=== PATIENT | female | born 1990 | race Caucasian/White ===

== ENCOUNTER 2017-12-08 06:00 | Inpatient (IN) | payer OTHER ==
[2017-12-08 18:09] VITALS: BMI 26.8
[2017-12-08] MEDS ORDERED: TERBUTALINE 1 MG/ML VIAL SQ PRN (18:12)
[2017-12-08] MEDS ORDERED: OXYTOCIN 10 UNIT/ML 1 ML VIAL IM PRN (18:12)
[2017-12-08] MEDS ORDERED: CARBOPROST TROMETHAMINE 250 MCG/ML 1 ML AMP IM PRN (18:12)
[2017-12-08] MEDS ORDERED: LIDOCAINE 1% (PF) 10 MG/ML (30 ML SDV) SQ PRN (18:12)
[2017-12-08] MEDS ORDERED: METHYLERGONOVINE 0.2 MG/ML 1 ML AMP IM PRN (18:12)
[2017-12-08] MEDS ORDERED: DINOPROSTONE 10 MG INSERT.ER VAGINAL ONE (18:14)
[2017-12-08] MEDS ORDERED: BUTORPHANOL 1 MG/ML 1 ML VIAL IV PRN (18:14)
[2017-12-08 18:36] LABS: Basophils % (A) 0 %; Eosinophils # (A) 0.1 k/uL (0-0.7); Eosinophils % (A) 1 %; HCT 39.6 % (34.0-46.0); HGB 13.3 gm/dL (11.4-16.0); Lymphocytes # (A) 1.7 k/uL (1.0-4.8); Lymphocytes % (A) 14 %; MCH 32.4 pg (25.0-35.0); MCHC 33.6 g/dL (31.0-37.0); MCV 96.2 fL (80.0-100.0); Monocytes # (A) 0.4 k/uL (0-1.0); Monocytes % (A) 3 %; Neutrophils # (A) 9.8 k/uL (1.3-7.7); Neutrophils % (A) 80 %; Platelet Count 163 k/uL (150-450); RBC 4.11 m/uL (3.80-5.40); RDW 13.3 % (11.5-15.5); WBC 12.2 k/uL (3.8-10.6)
--- NOTE | 2017-12-08 18:44 | P.HPOB ---
History of Present Illness H&P Date: 12/08/17 Chief Complaint: IUP @ 40 0/7 weeks, pain This is a 27 yo that presents for induction of labor. she states she has been very uncomfortable for the last 2 days. she notes occasional ctx, no LOF, VB. On bloodwork, blood type O pos, rubella immune, HBSaG neg, HIV neg, GBS neg. has been uncomplicated until this time. 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 Past Anesthesia/Blood Transfusion Reactions: No Reported Reaction Past Psychological History: No Psychological Hx Reported Smoking Status: Never smoker Past Drug Use History: None Reported - Past Family History Mother Family Medical History: Hypertension Medications and Allergies Allergies Allergy/AdvReac Type Severity Reaction Status Date / Time amoxicillin Allergy Rash/Hives Verified 12/08/17 18:01 clavulanic acid Allergy Rash/Hives Verified 12/08/17 18:01 [From Augmentin] Penicillins Allergy Rash/Hives Verified 12/08/17 18:01 Exam Osteopathic Statement: *. No significant issues noted on an osteopathic structural exam other than those noted in the History and Physical/Consult. - Vital Signs Vital signs: Vital Signs Temp Pulse Resp BP Pulse Ox 12/08/17 18:02 97.0 F L 88 18 150/90 99 Intake and Output 12/08/17 12/08/17 12/08/17 06:59 14:59 22:59 Other: Weight 75.296 kg - OBG Physical Exam Abdomen: gravid Cervix: ft/60/-3, soft posterior, small outlet noted Uterus: enlarged Assessment and Plan (1) Term Current Visit: Yes Status: Acute Code(s): Z34.80 - ENCOUNTER FOR SUPRVSN OF NORMAL , UNSP TRIMESTER SNOMED Code(s): 48656694 (2) Pain Current Visit: Yes Status: Acute Code(s): R52 - PAIN, UNSPECIFIED SNOMED Code(s): 78382797 Plan: plan admission tonight to labor and delivery for cervidil induction. stadol as requested, and epidural is order if needed. Time with Patient: Less than 30
[2017-12-09] MEDS: LACTATED RINGERS 1,000 ML IV SCH ×2 (06:05→08:56)
[2017-12-09] MEDS: OXYTOCIN 20 UNITS/1000 ML NS 1,000 ML IV SCH ×2 (06:13→20:09)
[2017-12-09] MEDS ORDERED: SODIUM CHLORIDE 0.9% 100 ML BAG ONE (08:30)
[2017-12-09] MEDS ORDERED: fentaNYL (PF) 50 MCG/ML 5 ML AMP ONE (08:30)
[2017-12-09] MEDS ORDERED: BUPIVACAINE (PF) 0.25% 30 ML VIAL ONE (08:30)
[2017-12-09] MEDS ORDERED: BUPIVACAINE (PF) 0.25% 25 ML, fentaNYL (PF) 200 MCG in SODIUM CHLORIDE 0.9% 71 ML EPIDURAL ONE (08:46)
[2017-12-09] MEDS ORDERED: LANOLIN CREAM 5 GM TUBE TOPICAL PRN (20:02)
[2017-12-09] MEDS ORDERED: SIMETHICONE 80 MG CHEWABLE PO PRN (20:02)
[2017-12-09] MEDS ORDERED: diphenhydrAMINE 25 MG CAP PO PRN (20:02)
[2017-12-09] MEDS ORDERED: BENZOCAINE/MENTHOL SPRAY 1 GM/SPRAY AEROSOL TOPICAL PRN (20:02)
[2017-12-09] MEDS ORDERED: HYDROCORTISONE 2.5% RECTAL CREAM 30 GM TUBE RECTAL PRN (20:02)
[2017-12-09] MEDS ORDERED: diphenhydrAMINE 50 MG/ML 1 ML VIAL IVP PRN ×2 (20:02)
[2017-12-09] MEDS ORDERED: ZOLPIDEM 5 MG TAB PO PRN (20:02)
[2017-12-09] MEDS ORDERED: diphenhydrAMINE 50 MG CAP PO PRN (20:02)
[2017-12-09] MEDS ORDERED: WITCH HAZEL 1 EACH MED..PAD TOPICAL PRN (20:02)
--- NOTE | 2017-12-09 20:11 | P.PROBDLV ---
Vaginal Delivery Note - . Vaginal Delivery Note: 27 yo at 40 0/7 weeks that presented for induction of labor last evening. she had a cervidil placed and progressed through the night and had SROM early in the am, clear in nature. pitocin augmentation was began and soon epidural placement was requested per pt. she progressed to complete and began pushing, she pushed to but was unable to push further secondary to maternal exhaustion. VAVD, one pull only with a contraction was completed with delviery of the Infant was noted to be maternal exhaustion was noted vacuum was placed in the usual fashion, palpation around the cup was then completed tissue was noted within the cup the suction was then activated to the green zone. Patient began pushing with push chance was noted was then delivered atraumatically suction was released downward traction delivered the anterior shoulder followed by gentle upward traction for the posterior shoulder the infant was then delivered in placed on the maternal abdomen. The cord was then doubly clamped and cut after he did blade cord clamp was completed. The placenta was then delivered spontaneously intact with a three-vessel cord. On inspection the patient's vaginal vault a midline second-degree laceration along with a left lateral sulcus laceration was noted these were repaired in the usual fashion with 3-0 Rapide. Afterwards these were inspected and hemostasis was appreciated. A rectal exam was completed and normal in nature. Estimated blood loss approximately 400 mL, mother and tolerated delivery well and are resting comfortably.
[2017-12-09] MEDS: IBUPROFEN 600 MG TAB PO PRN (21:37)
[2017-12-10] MEDS: ACETAMINOPHEN TAB 325 MG TAB PO PRN ×2 (00:48→12:03)
[2017-12-10] MEDS: LACTATED RINGERS 1,000 ML IV SCH (04:55)
[2017-12-10] MEDS: SENNOSIDES-DOCUSATE SODIUM 1 EACH TAB PO SCH (07:42)
[2017-12-10] MEDS: IBUPROFEN 600 MG TAB PO PRN ×2 (07:43→21:36)
[2017-12-10 08:17] LABS: Basophils % (A) 0 %; Eosinophils % (A) 0 %; HCT 31.3 % (34.0-46.0); HGB 10.7 gm/dL (11.4-16.0); Lymphocytes # (A) 1.4 k/uL (1.0-4.8); Lymphocytes % (A) 7 %; MCHC 34.3 g/dL (31.0-37.0); MCV 96.4 fL (80.0-100.0); Mean Platelet Volume 8.1; Monocytes # (A) 0.7 k/uL (0-1.0); Monocytes % (A) 3 %; Neutrophils # (A) 18.2 k/uL (1.3-7.7); Neutrophils % (A) 88 %; Platelet Count 131 k/uL (150-450); RBC 3.25 m/uL (3.80-5.40); RDW 13.3 % (11.5-15.5); WBC 20.5 k/uL (3.8-10.6)
--- NOTE | 2017-12-10 08:30 | P.PNOBGVD ---
Subjective - Subjective Principal diagnosis: day #1 status post vacuum-assisted vaginal delivery Interval history: Patient is doing well she is ambulating and voiding without difficulty. She is stating her pain is controlled with oral medication. She is breast-feeding without difficulty. She is denying nausea or vomiting and tolerating a regular diet Patient reports: Reports appetite normal, Reports voiding normally, Reports pain well controlled, Reports ambulating normally : doing well, nursing well Objective - Latest Vital Signs Latest vital signs: Vital Signs Temp Pulse Resp BP 12/10/17 08:00 98 F 82 18 148/68 12/10/17 04:00 98.2 F 93 14 132/78 12/10/17 00:00 97.9 F 102 H 16 136/83 12/09/17 21:56 122 H 16 145/63 12/09/17 21:26 115 H 16 142/78 12/09/17 20:51 122 H 18 144/80 12/09/17 20:36 98.2 F 136 H 18 148/65 12/09/17 20:11 160 H 18 136/81 12/09/17 19:56 98.5 F 155 H 20 158/74 12/09/17 19:49 150 H Intake and Output 12/09/17 12/10/17 12/10/17 22:59 06:59 14:59 Intake Total 41.8 Output Total 1200 3000 Balance -1158.2 -3000 Intake: Intake, IV Titration 41.8 Amount Oxytocin 20 Units/1000 ml 41.8 Ns 1,000 ml @ 1 MILLIUNIT/MIN 3 mls/hr IV .Q24H [facility] Rx#:[id number] Output: Urine 3000 Uretheral ([place]) 1500 Estimated Blood Loss 1200 Other: # Voids 1 - Exam Extremities: Present: normal Abdomen: Present: soft Uterus: Present: firm - Labs Labs: Abnormal Lab Results - Last 24 Hours (Table) 12/10/17 Range/Units 07:11 WBC 20.5 H (3.8-10.6) k/uL RBC 3.25 L (3.80-5.40) m/uL Hgb 10.7 L (11.4-16.0) gm/dL Hct 31.3 L (34.0-46.0) % Plt Count 131 L (150-450) k/uL Neutrophils # 18.2 H (1.3-7.7) k/uL Assessment and Plan (1) Term Current Visit: Yes Status: Acute Code(s): Z34.80 - ENCOUNTER FOR SUPRVSN OF NORMAL , UNSP TRIMESTER SNOMED Code(s): 39324522 (2) Pain Current Visit: Yes Status: Acute Code(s): R52 - PAIN, UNSPECIFIED SNOMED Code(s): 42329323 (3) Status post vacuum-assisted vaginal delivery Current Visit: Yes Status: Acute Code(s): Z87.42 - PERSONAL HISTORY OF OTH DISEASES OF THE FEMALE GENITAL TRACT SNOMED Code(s): 066976966 Plan: Doing well , we will increase ambulation and breast-feeding this morning. Patient does desire circumflex of her boy which will be done later this afternoon. She does wish to stay until the morning. And will most likely be discharged tomorrow
[2017-12-11] MEDS: SENNOSIDES-DOCUSATE SODIUM 1 EACH TAB PO SCH ×2 (00:51→07:35)
[2017-12-11] MEDS: IBUPROFEN 600 MG TAB PO PRN ×2 (07:35→14:02)
[2017-12-11 07:43] VITALS: TEMP 97.6
--- NOTE | 2017-12-11 08:19 | P.DS ---
Providers Date of admission: 12/08/17 17:44 Expected date of discharge: 12/11/17 Attending physician: Raissa Lopez Primary care physician: Stated None Hospital Course: This is a 27-year-old white female 1 para 0 EDC 12/08/2017 at 40 and one sevenths weeks' gestation. Patient was admitted for induction. She received Cervidil 1, and the next morning artificial amniorrhexis revealed clear fluid. is essentially unremarkable, blood type O+, rubella status immune, group B strep cultures negative. Please see dictated history and physical for details. Oxytocin was started and titrated per hospital protocol epidural was placed per her request. She went on to deliver a liveborn male infant, he weighed 3340 g or 7 lbs. 6 oz. There was a small second-degree perineal laceration easily repaired and an estimated blood loss recorded of 400 mL's. Please see dictated delivery note for details. Circumcision has been performed. This morning the patient is doing well. She is voiding, ambulating and passing flatus without difficulty. Vital signs are stable and she is afebrile. Fundus is firm and in the midline, symmetric and 18 week size. Extremities are negative for edema. She has a mild amount of. Orbital swelling from the second stage of labor, vision is good, no obvious ecchymoses. Breasts are not engorged. Breast-feeding is going well. Patient is being discharged home in good condition today. She will follow-up in the office with her attending physician in 6 weeks. I have reminded her no intercourse, tampons or douching. She will use [id number] ibuprofen products as needed for pain, 200 mg pills, 3 every 6 hours as needed. I reminded her to call with any fevers shakes or chills, foul smelling or copious lochia, with the passage of large blood clots, with any pain not alleviated by ibuprofen products, or indeed with any concerns. She will continue taking her vitamin daily. Baby will follow up with automotive exhaust emissions technician as per recommendations. Patient Condition at Discharge: Good Plan - Discharge Summary Follow up Appointment(s)/Referral(s): Raissa Lopez DO [Doctor of Osteopathic Medicine] - 6 Weeks Discharge Disposition: HOME SELF-CARE
[2017-12-11 15:09] VITALS: BP 135/79; PULSE 100; RESP 16
== END 2017-12-11 19:00 | disposition home or self-care (01) | DRG 775 ==
LOC: 4FBP 17:44
PROVIDERS: ADMIT Obstetrics & Gynecology Obstetrics; ATTEND Obstetrics & Gynecology Obstetrics
PROC: 0KQM0ZZ Repair Perineum Muscle, Open Approach (ICD-10-PCS; principal; 2017-12-09)
PROC: 00HU33Z Insertion of Infusion Device into Spinal Canal, Percutaneous Approach (ICD-10-PCS; principal; 2017-12-09)
PROC: 10D07Z6 Extraction of Products of Conception, Vacuum, Via Natural or Artificial Opening (ICD-10-PCS; principal; 2017-12-09)
PROC: 3E0R3NZ Introduction of Analgesics, Hypnotics, Sedatives into Spinal Canal, Percutaneous Approach (ICD-10-PCS; principal; 2017-12-09)
DX: O75.81 Maternal exhaustion complicating labor and delivery (principal); K21.9 Gastro-esophageal reflux disease without esophagitis; O99.62 Diseases of the digestive system complicating childbirth; Z37.0 Single live birth; O70.1 Second degree perineal laceration during delivery; Z3A.40 40 weeks gestation of pregnancy; Z82.49 Family history of ischemic heart disease and other diseases of the circulatory system; Z98.890 Other specified postprocedural states; Z88.0 Allergy status to penicillin
CPT/HCPCS: 85025; 88307

== ENCOUNTER 2020-11-24 15:10 | Inpatient (IN) | payer OTHER ==
[2020-11-24] MEDS ORDERED: SODIUM CHLORIDE 0.9% 500 ML 500 ML IV ONE (16:07)
[2020-11-24] MEDS ORDERED: ALBUTEROL HFA INHALER INHALATION STA (16:07)
[2020-11-24] MEDS ORDERED: ACETAMINOPHEN TAB 500 MG TAB PO STA (16:11)
--- NOTE | 2020-11-24 16:15 | ED ---
General Adult HPI - General Chief complaint: Upper Respiratory Infection Stated complaint: +COVID,SOB 28 wks preg Time Seen by Provider: 11/24/20 16:01 Source: patient, RN notes reviewed, old records reviewed Mode of arrival: ambulatory Limitations: no limitations - History of Present Illness Initial comments: 30-year-old female presents for evaluation of cough, fever. Patient was diagnosed with coronavirus on November 21. She is currently 28 weeks . She's had some nausea and dry heaving. She states she has not felt well for the past 3 days. She does have some shortness of breath. No lower extremity pain or swelling. No complications with this . Patient is otherwise healthy. - Related Data Allergies Allergy/AdvReac Type Severity Reaction Status Date / Time amoxicillin Allergy Rash/Hives Verified 11/24/20 15:28 clavulanic acid Allergy Rash/Hives Verified 11/24/20 15:28 [From Augmentin] Penicillins Allergy Rash/Hives Verified 11/24/20 15:28 Review of Systems ROS Statement: Those systems with pertinent positive or pertinent negative responses have been documented in the HPI. ROS Other: All systems not noted in ROS Statement are negative. 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 Past Anesthesia/Blood Transfusion Reactions: No Reported Reaction Past Psychological History: No Psychological Hx Reported Smoking Status: Never smoker Past Alcohol Use History: None Reported Past Drug Use History: None Reported - Past Family History Mother Family Medical History: Hypertension General Exam Limitations: no limitations General appearance: alert, in no apparent distress Head exam: Present: atraumatic, normocephalic Eye exam: Present: normal appearance, PERRL ENT exam: Present: mucous membranes dry Neck exam: Present: normal inspection. Absent: tenderness, meningismus Respiratory exam: Present: rales, rhonchi. Absent: respiratory distress Cardiovascular Exam: Present: regular rate, normal rhythm GI/Abdominal exam: Present: soft, other (Gravid). Absent: distended, tenderness, guarding Extremities exam: Present: normal inspection, normal capillary refill. Absent: pedal edema, calf tenderness Neurological exam: Present: alert, oriented X3, CN II-XII intact. Absent: motor sensory deficit Psychiatric exam: Present: normal affect, normal mood Skin exam: Present: warm, dry, intact. Absent: cyanosis, diaphoretic Course Vital Signs 11/24/20 11/24/20 11/24/20 15:24 16:53 17:32 Temperature 100.9 F H Pulse Rate 92 142 H 126 H Respiratory 18 20 16 Rate Blood Pressure 121/68 121/58 O2 Sat by Pulse 93 L 94 L 97 Oximetry EKG Findings - EKG Comments: EKG Findings:: EKG: Sinus tachycardia, rate of 122, no ST segment elevation, FL intervals 1:30, QRS duration 80, QTC 436 Medical Decision Making - Medical Decision Making 30-year-old female with cough, outpatient positive for coronavirus. X-rays performed showing a bilateral pneumonia consistent withCOVID PNA. Patient is tachycardic, with oxygenation in the low 90s. She has a normal CBC, CMP showing normal electrolytes, she has a elevated LDH and elevated CRP. She is given Decadron, albuterol, IV hydration in the emergency department. She will be admitted for close monitoring, both obstetrics and pulmonology is placed on consult. Case discussed with Violet rao for [facility]. - Lab Data Result diagrams: 11/24/20 16:05 11/24/20 16:05 Lab Results 11/24/20 11/24/20 11/24/20 Range/Units 16:05 16:05 16:05 WBC 7.2 (3.8-10.6) k/uL RBC 4.33 (3.80-5.40) m/uL Hgb 14.1 (11.4-16.0) gm/dL Hct 40.9 (34.0-46.0) % MCV 94.5 (80.0-100.0) fL MCH 32.5 (25.0-35.0) pg MCHC 34.4 (31.0-37.0) g/dL RDW 13.5 (11.5-15.5) % Plt Count 154 (150-450) k/uL MPV 7.9 Neutrophils % 85 % Lymphocytes % 9 % Monocytes % 4 % Eosinophils % 0 % Basophils % 0 % Neutrophils # 6.2 (1.3-7.7) k/uL Lymphocytes # 0.7 L (1.0-4.8) k/uL Monocytes # 0.3 (0-1.0) k/uL Eosinophils # 0.0 (0-0.7) k/uL Basophils # 0.0 (0-0.2) k/uL PT 9.6 (9.0-12.0) sec INR 0.9 (<1.2) APTT 27.1 (22.0-30.0) sec Sodium 133 L (137-145) mmol/L Potassium 3.6 (3.5-5.1) mmol/L Chloride 103 (98-107) mmol/L Carbon Dioxide 21 L (22-30) mmol/L Anion Gap 9 mmol/L BUN 6 L (7-17) mg/dL Creatinine 0.67 (0.52-1.04) mg/dL Est GFR (CKD-EPI)AfAm >90 (>60 ml/min/1.73 sqM) Est GFR (CKD-EPI)NonAf >90 (>60 ml/min/1.73 sqM) Glucose 88 (74-99) mg/dL Plasma Lactic Acid Cesario (0.7-2.0) mmol/L Calcium 8.4 (8.4-10.2) mg/dL Magnesium 1.6 (1.6-2.3) mg/dL Total Bilirubin 0.7 (0.2-1.3) mg/dL AST 47 H (14-36) U/L ALT 22 (4-34) U/L Alkaline Phosphatase 85 (38-126) U/L Lactate Dehydrogenase 742 H (313-618) U/L C-Reactive Protein 65.0 H (<10.0) mg/L Total Protein 6.3 (6.3-8.2) g/dL Albumin 3.3 L (3.5-5.0) g/dL 11/24/20 Range/Units 16:50 WBC (3.8-10.6) k/uL RBC (3.80-5.40) m/uL Hgb (11.4-16.0) gm/dL Hct (34.0-46.0) % MCV (80.0-100.0) fL MCH (25.0-35.0) pg MCHC (31.0-37.0) g/dL RDW (11.5-15.5) % Plt Count (150-450) k/uL MPV Neutrophils % % Lymphocytes % % Monocytes % % Eosinophils % % Basophils % % Neutrophils # (1.3-7.7) k/uL Lymphocytes # (1.0-4.8) k/uL Monocytes # (0-1.0) k/uL Eosinophils # (0-0.7) k/uL Basophils # (0-0.2) k/uL PT (9.0-12.0) sec INR (<1.2) APTT (22.0-30.0) sec Sodium (137-145) mmol/L Potassium (3.5-5.1) mmol/L Chloride (98-107) mmol/L Carbon Dioxide (22-30) mmol/L Anion Gap mmol/L BUN (7-17) mg/dL Creatinine (0.52-1.04) mg/dL Est GFR (CKD-EPI)AfAm (>60 ml/min/1.73 sqM) Est GFR (CKD-EPI)NonAf (>60 ml/min/1.73 sqM) Glucose (74-99) mg/dL Plasma Lactic Acid Cesario 1.2 (0.7-2.0) mmol/L Calcium (8.4-10.2) mg/dL Magnesium (1.6-2.3) mg/dL Total Bilirubin (0.2-1.3) mg/dL AST (14-36) U/L ALT (4-34) U/L Alkaline Phosphatase (38-126) U/L Lactate Dehydrogenase (313-618) U/L C-Reactive Protein (<10.0) mg/L Total Protein (6.3-8.2) g/dL Albumin (3.5-5.0) g/dL Disposition Clinical Impression: Pneumonia due to COVID-19 virus, Disposition: ADMITTED IP TO THIS [facility] Condition: Stable Is patient prescribed a controlled substance at d/c from ED?: No Referrals: Nonstaff,Physician [Primary Care Provider] - 1-2 days Decision to Admit Reason: Admit from EC Decision Date: 11/24/20 Decision Time: 17:55
--- NOTE | 2020-11-24 16:18 | XR ---
EXAMINATION TYPE: XR chest 1V portable DATE OF EXAM: 11/24/2020 COMPARISON: NONE HISTORY: Cough. Short of breath. TECHNIQUE: Single view FINDINGS: Heart and mediastinum are normal. There are no hilar masses. There is patchy airspace infil trates in both lower lobes. Bony vascularity is normal. Bony thorax is intact. IMPRESSION: Bilateral lower lobe pneumonia. Normal heart.
[2020-11-24] MEDS ORDERED: DEXAMETHASONE SOD PHOSPHATE 10 MG/ML 1 ML VIAL IV STA (17:09)
[2020-11-24 17:10] LABS: Basophils % (A) 0 %; Eosinophils % (A) 0 %; HCT 40.9 % (34.0-46.0); HGB 14.1 gm/dL (11.4-16.0); Lymphocytes # (A) 0.7 k/uL (1.0-4.8); Lymphocytes % (A) 9 %; MCH 32.5 pg (25.0-35.0); MCHC 34.4 g/dL (31.0-37.0); MCV 94.5 fL (80.0-100.0); Mean Platelet Volume 7.9; Monocytes # (A) 0.3 k/uL (0-1.0); Monocytes % (A) 4 %; Neutrophils # (A) 6.2 k/uL (1.3-7.7); Neutrophils % (A) 85 %; Platelet Count 154 k/uL (150-450); RBC 4.33 m/uL (3.80-5.40); RDW 13.5 % (11.5-15.5); WBC 7.2 k/uL (3.8-10.6)
[2020-11-24 17:19] LABS: INR 0.9 (<1.2); Partial Thromboplastin Time 27.1 sec (22.0-30.0); Prothrombin Time 9.6 sec (9.0-12.0)
[2020-11-24 17:24] LABS: ALT 22 U/L (4-34); AST 47 U/L (14-36); African American GFR (CKD) >90 (>60 ml/min/1.73 sqM); Albumin 3.3 g/dL (3.5-5.0); Alkaline Phosphatase 85 U/L (38-126); Anion Gap 9 mmol/L; Blood Urea Nitrogen 6 mg/dL (7-17); Calcium 8.4 mg/dL (8.4-10.2); Carbon Dioxide 21 mmol/L (22-30); Chloride 103 mmol/L (98-107); Glucose 88 mg/dL (74-99); LDH 742 U/L (313-618); Magnesium 1.6 mg/dL (1.6-2.3); Non-African American GFR(CKD) >90 (>60 ml/min/1.73 sqM); Potassium 3.6 mmol/L (3.5-5.1); Sodium 133 mmol/L (137-145); Total Bilirubin 0.7 mg/dL (0.2-1.3); Total Protein 6.3 g/dL (6.3-8.2)
[2020-11-24] MEDS ORDERED: NALOXONE 0.4 MG/ML 1 ML VIAL IV PRN (17:50)
[2020-11-24] MEDS: SODIUM CHLORIDE 0.9% 1,000 ML IV SCH (21:28)
[2020-11-25 00:11] LABS: Ferritin 149.9 ng/mL (10.0-291.0)
[2020-11-25] MEDS: SODIUM CHLORIDE 0.9% 1,000 ML IV SCH ×2 (05:36→12:02)
[2020-11-25] MEDS: ACETAMINOPHEN TAB 325 MG TAB PO PRN (07:38)
[2020-11-25 07:56] LABS: Basophils % (A) 0 %; Eosinophils % (A) 0 %; HCT 35.2 % (34.0-46.0); HGB 11.9 gm/dL (11.4-16.0); Lymphocytes # (A) 0.6 k/uL (1.0-4.8); Lymphocytes % (A) 12 %; MCH 32.4 pg (25.0-35.0); MCHC 33.8 g/dL (31.0-37.0); MCV 95.9 fL (80.0-100.0); Mean Platelet Volume 7.6; Monocytes # (A) 0.2 k/uL (0-1.0); Monocytes % (A) 4 %; Neutrophils # (A) 4.5 k/uL (1.3-7.7); Neutrophils % (A) 83 %; Platelet Count 138 k/uL (150-450); RBC 3.67 m/uL (3.80-5.40); RDW 13.7 % (11.5-15.5); WBC 5.4 k/uL (3.8-10.6)
[2020-11-25 08:07] LABS: ALT 20 U/L (4-34); AST 39 U/L (14-36); African American GFR (CKD) >90 (>60 ml/min/1.73 sqM); Albumin 2.5 g/dL (3.5-5.0); Alkaline Phosphatase 65 U/L (38-126); Anion Gap 5 mmol/L; Blood Urea Nitrogen 5 mg/dL (7-17); Carbon Dioxide 19 mmol/L (22-30); Chloride 111 mmol/L (98-107); Glucose 101 mg/dL (74-99); Magnesium 1.7 mg/dL (1.6-2.3); Non-African American GFR(CKD) >90 (>60 ml/min/1.73 sqM); Potassium 3.8 mmol/L (3.5-5.1); Sodium 135 mmol/L (137-145); Total Bilirubin 0.6 mg/dL (0.2-1.3); Total Protein 5.2 g/dL (6.3-8.2)
[2020-11-25] MEDS ORDERED: MAGNESIUM SULFATE-D5W PMX 1 GM in DEXTROSE/WATER 1 100ML.BAG IVPB ONE (10:17)
--- NOTE | 2020-11-25 10:24 | P.HPIM ---
History of Present Illness 30-year-old female presents for evaluation of cough, fever. Patient was diagnosed with coronavirus on November 21. She is currently 28 weeks . She's had some nausea and dry heaving. She states she has not felt well for the past 3 days. She does have some shortness of breath. No lower extremity pain or swelling. No complications with this . Patient is otherwise healthy. Patient was given a dose of Decadron in ER. Patient is hyponatremic is receiving IV fluids. Magnesium is low which will be replaced. Patient has symptoms of congestion which started about 9 days ago but her actual symptoms of body aches fevers started 5 days ago. Patient's hyponatremia improved patient had a chest x-ray just showing extensive infiltrates in bilateral lower lobes. Patient is not requiring oxygen patient is bit tachycardic at tachycardia although improved with IV fluids. Patient was having fevers last night. Wilton georges is having dry cough Review of Systems REVIEW OF SYSTEMS: CONSTITUTIONAL: As mentioned in HPI HEENT: No recent visual problems or hearing problems. Denied any sore throat. CARDIOVASCULAR: No chest pain, orthopnea, PND, no palpitations, no syncope. PULMONARY: no hemoptysis. GASTROINTESTINAL: No diarrhea, no nausea, no vomiting, no abdominal pain. NEUROLOGICAL: No headaches, no weakness, no numbness. HEMATOLOGICAL: Denies any bleeding or petechiae. GENITOURINARY: Denies any burning micturition, frequency, or urgency. MUSCULOSKELETAL/RHEUMATOLOGICAL: Denies any joint pain, swelling, or any muscle pain. ENDOCRINE: Denies any polyuria or polydipsia. The rest of the 14-point review of systems is negative. 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 Past Anesthesia/Blood Transfusion Reactions: No Reported Reaction Past Psychological History: No Psychological Hx Reported Smoking Status: Never smoker Past Alcohol Use History: None Reported Past Drug Use History: None Reported - Past Family History Mother Family Medical History: Hypertension Medications and Allergies Home Medications Medication Instructions Recorded Confirmed Type Ascorbic Acid [Vitamin C] 500 mg PO DAILY 11/24/20 11/24/20 History Pnv No.95/Ferrous Fum/Folic AC 1 tab PO DAILY 11/24/20 11/24/20 History [ Multivitamin Tablet] Zinc 50 mg PO HS 11/24/20 11/24/20 History guaiFENesin-DM 100-10MG/5ML 10 ml PO Q4H PRN 11/24/20 11/24/20 History [Robitussin DM] Allergies Allergy/AdvReac Type Severity Reaction Status Date / Time amoxicillin Allergy Rash/Hives Verified 11/24/20 20:25 clavulanic acid Allergy Rash/Hives Verified 11/24/20 20:25 [From Augmentin] Penicillins Allergy Rash/Hives Verified 11/24/20 20:25 Physical Exam Vitals: Vital Signs Temp Pulse Pulse Resp BP BP Pulse Ox 11/25/20 07:43 98.1 F 95 18 120/65 95 11/25/20 04:00 97.9 F 88 20 124/68 95 11/25/20 01:48 90 20 11/25/20 00:00 98.0 F 90 20 102/66 97 11/24/20 20:00 96 20 11/24/20 18:37 98.3 F 96 20 105/70 96 11/24/20 18:18 100.2 F H 115 H 20 97 11/24/20 17:32 126 H 16 97 11/24/20 17:15 22 11/24/20 16:53 142 H 20 121/58 94 L 11/24/20 15:24 100.9 F H 92 18 121/68 93 L Intake and Output 11/24/20 11/25/20 11/25/20 22:59 06:59 14:59 Intake Total 240 640 Balance 240 640 Intake: Intake, IV Titration 400 Amount Sodium Chloride 0.9% 1, 400 000 ml @ 100 mls/hr IV . Q10H [facility] Rx#:[id number] Oral 240 240 Other: # Voids 1 2 Weight 64.41 kg 66.5 kg PHYSICAL EXAMINATION: GENERAL: The patient is alert and oriented x3, not in any acute distress. Well developed, well nourished. HEENT: Pupils are round and equally reacting to light. EOMI. No scleral icterus. No conjunctival pallor. Normocephalic, atraumatic. No pharyngeal erythema. No thyromegaly. CARDIOVASCULAR: S1 and S2 present. No murmurs, rubs, or gallops. PULMONARY: Chest is clear to auscultation, no wheezing or crackles. ABDOMEN: Soft, nontender, nondistended, normoactive bowel sounds. No palpable organomegaly. MUSCULOSKELETAL: No joint swelling or deformity. EXTREMITIES: No cyanosis, clubbing, or pedal edema. NEUROLOGICAL: Gross neurological examination did not reveal any focal deficits. SKIN: No rashes. Note: Because of COVID 19 isolation, some of the history and physical exam findings are indirect and obtained from nursing staff, and other physician examinations to avoid unnecessary contact with the patient. Results CBC & Chem 7: 11/25/20 07:03 11/25/20 07:03 Labs: Abnormal Lab Results - Last 24 Hours (Table) 11/24/20 11/24/20 11/24/20 Range/Units 16:05 16:05 16:05 RBC (3.80-5.40) m/uL Plt Count (150-450) k/uL Lymphocytes # 0.7 L (1.0-4.8) k/uL Sodium 133 L (137-145) mmol/L Chloride (98-107) mmol/L Carbon Dioxide 21 L (22-30) mmol/L BUN 6 L (7-17) mg/dL Glucose (74-99) mg/dL Calcium (8.4-10.2) mg/dL AST 47 H (14-36) U/L Lactate Dehydrogenase 742 H (313-618) U/L C-Reactive Protein 65.0 H (<10.0) mg/L Total Protein (6.3-8.2) g/dL Albumin 3.3 L (3.5-5.0) g/dL Procalcitonin 0.43 H (0.02-0.09) ng/mL 11/25/20 11/25/20 Range/Units 07:03 07:03 RBC 3.67 L (3.80-5.40) m/uL Plt Count 138 L (150-450) k/uL Lymphocytes # 0.6 L (1.0-4.8) k/uL Sodium 135 L (137-145) mmol/L Chloride 111 H (98-107) mmol/L Carbon Dioxide 19 L (22-30) mmol/L BUN 5 L (7-17) mg/dL Glucose 101 H (74-99) mg/dL Calcium 8.0 L (8.4-10.2) mg/dL AST 39 H (14-36) U/L Lactate Dehydrogenase (313-618) U/L C-Reactive Protein (<10.0) mg/L Total Protein 5.2 L (6.3-8.2) g/dL Albumin 2.5 L (3.5-5.0) g/dL Procalcitonin (0.02-0.09) ng/mL Thrombosis Risk Factor Assmnt - Choose All That Apply Any of the Below Risk Factors Present?: Yes Each Factor Represents 1 point: or Other Risk Factors: No Thrombosis Risk Factor Assessment Total Risk Factor Score: 1 Thrombosis Risk Factor Assessment Level: Low Risk Assessment and Plan Plan: -Bilateral pneumonia: Secondary to Covid 19. Patient is not requiring oxygen probably will not require any systemic strides continue with Covid vitamins. Pulmonology will evaluated the patient. Patient to is in distress because of significant cough patient will be started on cough syrup patient may be able to go either today or tomorrow depending on extruder operator multiple assessment. - status 28 weeks -Hypovolemic hyponatremia improved with IV fluids -Hypomagnesemia magnesium will be replaced -Sinus tachycardia secondary to fever and dehydration improved with IV fluids
[2020-11-25] MEDS: guaiFENesin-DM 100-10MG/5ML 10 ML CUP PO PRN (10:34)
[2020-11-25] MEDS: CHOLECALCIFEROL 25 MCG (1000 IU) TABLET PO SCH (12:04)
[2020-11-25] MEDS: dexAMETHasone 2 MG TAB PO SCH (12:04)
[2020-11-25] MEDS: BENZONATATE 100 MG CAP PO SCH ×3 (12:04→22:08)
--- NOTE | 2020-11-25 12:06 | P.OBCN ---
History of Present Illness Consult date: 11/25/20 Reason for consult: other () Chief complaint: 28 weeks IUP, COVID pneumonia History of present illness: The patient is a 30-year-old 2 para 1001 who initially began developing symptoms of cough and fever proximally 4 days ago around November 21. She went and had COVID testing performed which came up positive. Her symptoms began to increase leading her to present to the emergency room yesterday at which time she was deemed worthy of admission. Reportedly her O2 saturation was 93% on room air. It is approximately 97% on 2 L of nasal cannula oxygen. She continues to have a significant cough as her primary symptom and chest x-ray does show bilateral infiltrates consistent with pneumonia caused by coronavirus. She denies any concerns. The fetus remains active. She has undergone nonstress testing both yesterday at the time of admission and today, both of which were reassuring with category 1 heart rate tracings. Pulmonology has been consulted for management of her respiratory symptoms. Obstetrical history: 2 para 1001 with 1 term vaginal delivery without complications. Current statistics are listed in history present illness. The patient does have a personal history of ventricular septal defect causing recommendation for a echocardiogram following delivery. Laboratory workup demonstrates a blood type of O+ with a negative antibody screen. Rubella status is immune. The remainder of the laboratory workup was within normal limits. She has not yet undergone Glucola normal group B strep testing. Gynecologic history: Unremarkable with no history of any infections to include STDs. Review of Systems Review of systems is confined to history of present illness. 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 Past Anesthesia/Blood Transfusion Reactions: No Reported Reaction Past Psychological History: No Psychological Hx Reported Smoking Status: Never smoker Past Alcohol Use History: None Reported Past Drug Use History: None Reported - Past Family History Mother Family Medical History: Hypertension Medications and Allergies Home Medications Medication Instructions Recorded Confirmed Type Ascorbic Acid [Vitamin C] 500 mg PO DAILY 11/24/20 11/24/20 History Pnv No.95/Ferrous Fum/Folic AC 1 tab PO DAILY 11/24/20 11/24/20 History [ Multivitamin Tablet] Zinc 50 mg PO HS 11/24/20 11/24/20 History guaiFENesin-DM 100-10MG/5ML 10 ml PO Q4H PRN 11/24/20 11/24/20 History [Robitussin DM] Allergies Allergy/AdvReac Type Severity Reaction Status Date / Time amoxicillin Allergy Rash/Hives Verified 11/24/20 20:25 clavulanic acid Allergy Rash/Hives Verified 11/24/20 20:25 [From Augmentin] Penicillins Allergy Rash/Hives Verified 11/24/20 20:25 Exam Vital Signs Temp Pulse Pulse Resp BP BP Pulse Ox 11/25/20 10:42 97.8 F 91 20 117/60 95 11/25/20 07:43 98.1 F 95 18 120/65 95 11/25/20 04:00 97.9 F 88 20 124/68 95 11/25/20 01:48 90 20 11/25/20 00:00 98.0 F 90 20 102/66 97 11/24/20 20:00 96 20 11/24/20 18:37 98.3 F 96 20 105/70 96 11/24/20 18:18 100.2 F H 115 H 20 97 11/24/20 17:32 126 H 16 97 11/24/20 17:15 22 11/24/20 16:53 142 H 20 121/58 94 L 11/24/20 15:24 100.9 F H 92 18 121/68 93 L Intake and Output 11/24/20 11/25/20 11/25/20 22:59 06:59 14:59 Intake Total 240 640 600 Balance 240 640 600 Intake: Intake, IV Titration 400 400 Amount Magnesium Sulfate-D5w Pmx 100 1 gm In Dextrose/Water 1 100ml.bag @ 100 mls/hr IVPB ONCE ONE Rx#: [id number] Sodium Chloride 0.9% 1, 400 300 000 ml @ 100 mls/hr IV . Q10H [facility] Rx#:[id number] Oral 240 240 200 Other: # Voids 1 2 1 Weight 64.41 kg 66.5 kg Vital signs are stable and the patient is afebrile. Examination is limited to discussion though in general she is a well-developed well-nourished white female with a relatively chronic dry cough. Further examination is unwarranted as a medical team has managed that. Results Result Diagrams: 11/25/20 07:03 11/25/20 07:03 Abnormal Lab Results - Last 24 Hours (Table) 11/24/20 11/24/20 11/24/20 Range/Units 16:05 16:05 16:05 RBC (3.80-5.40) m/uL Plt Count (150-450) k/uL Lymphocytes # 0.7 L (1.0-4.8) k/uL Sodium 133 L (137-145) mmol/L Chloride (98-107) mmol/L Carbon Dioxide 21 L (22-30) mmol/L BUN 6 L (7-17) mg/dL Glucose (74-99) mg/dL Calcium (8.4-10.2) mg/dL AST 47 H (14-36) U/L Lactate Dehydrogenase 742 H (313-618) U/L C-Reactive Protein 65.0 H (<10.0) mg/L Total Protein (6.3-8.2) g/dL Albumin 3.3 L (3.5-5.0) g/dL Procalcitonin 0.43 H (0.02-0.09) ng/mL 11/25/20 11/25/20 Range/Units 07:03 07:03 RBC 3.67 L (3.80-5.40) m/uL Plt Count 138 L (150-450) k/uL Lymphocytes # 0.6 L (1.0-4.8) k/uL Sodium 135 L (137-145) mmol/L Chloride 111 H (98-107) mmol/L Carbon Dioxide 19 L (22-30) mmol/L BUN 5 L (7-17) mg/dL Glucose 101 H (74-99) mg/dL Calcium 8.0 L (8.4-10.2) mg/dL AST 39 H (14-36) U/L Lactate Dehydrogenase (313-618) U/L C-Reactive Protein (<10.0) mg/L Total Protein 5.2 L (6.3-8.2) g/dL Albumin 2.5 L (3.5-5.0) g/dL Procalcitonin (0.02-0.09) ng/mL Assessment and Plan (1) Pneumonia due to COVID-19 virus Current Visit: Yes Status: Acute Code(s): U07.1 - COVID-19; J12.82 - Pneumonia due to coronavirus disease 2019 SNOMED Code(s): 471138076870523025 (2) Current Visit: Yes Status: Acute Code(s): Z34.90 - ENCNTR FOR SUPRVSN OF NORMAL , UNSP, UNSP TRIMESTER SNOMED Code(s): 27785327 Plan: The primary issue at this time is her pulmonary status which is being well managed by medicine and pulmonology. From an obstetrical perspective, she only requires assessment of well-being on a daily basis with a nonstress test which has been performed both yesterday and today. I would agree with the idea of management patient as an outpatient if at all possible. We will leave that in the hands of pulmonology. We will continue to follow nonstress test but otherwise follow at a distance as there is no indication for obstetrical intervention at this time.
--- NOTE | 2020-11-25 15:02 | P.CNPUL ---
History of Present Illness Consult date: 11/25/20 Requesting physician: Eunice Martinez Reason for consult: dyspnea, abnormal CXR/CT Chief complaint: Shortness of breath, cough, congestion History of present illness: This is a very pleasant 30-year-old female patient who has a history of a VSD heart murmur and is currently 28 weeks . Oxygen 4-5 days ago she developed increasing shortness of breath cough congestion and fever. She was te sted positive for chronic virus on 11/21/2020. Her symptoms progressed and she presented to the emergency room yesterday with ongoing shortness of breath, cough and congestion. No nausea vomiting or diarrhea. Non-stress testing of the fetus has revealed good results. Chest x-ray does reveal bilateral patchy infiltrates consistent with CoVID 19 pneumonia. White count 5.4. Hemoglobin 11.9. Lymphocytes 0.6. Sodium 135. Potassium 3.8. Creatinine 0.58. LDH 742. C-reactive protein 65. Pro-calcitonin 0.43. She is seen today in consultation on the selective care unit. She is currently sitting up in bed. Awake and alert in no acute distress. He does have the continued dry nonproductive cough. T-max of 100.9. Currently afebrile. She is receiving 0.9 normal saline at 100 ML's per hour. vitamins. Review of Systems REVIEW OF SYSTEMS: CONSTITUTIONAL: Positive for expected weight gain. EYES: Denies change in vision. EARS, NOSE, MOUTH, THROAT: Denies headaches, denies sore throat. CARDIOVASCULAR: Denies chest pain, palpitations or syncopal episodes. RESPIRATORY: Positive for shortness of breath, cough, congestion no hemoptysis. GASTROINTESTINAL: Denies change in appetite, denies abdominal pain GENITOURINARY: Denies hematuria, denies infections. MUSKULOSKELETAL: Denies pain, denies swelling. INTEGUMENTARY: Denies rash, denies eczema. NEUROLOGICAL: Denies recent memory loss, no recent seizure activity. PSYCHIATRIC: Denies anxiety, denies depression. HEMATOLOGIC/LYMPHATIC: Denies anemia, denies enlarged lymph nodes. 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 Past Anesthesia/Blood Transfusion Reactions: No Reported Reaction Past Psychological History: No Psychological Hx Reported Smoking Status: Never smoker Past Alcohol Use History: None Reported Past Drug Use History: None Reported - Past Family History Mother Family Medical History: Hypertension Medications and Allergies Home Medications Medication Instructions Recorded Confirmed Type Ascorbic Acid [Vitamin C] 500 mg PO DAILY 11/24/20 11/24/20 History Pnv No.95/Ferrous Fum/Folic AC 1 tab PO DAILY 11/24/20 11/24/20 History [ Multivitamin Tablet] Zinc 50 mg PO HS 11/24/20 11/24/20 History guaiFENesin-DM 100-10MG/5ML 10 ml PO Q4H PRN 11/24/20 11/24/20 History [Robitussin DM] Allergies Allergy/AdvReac Type Severity Reaction Status Date / Time amoxicillin Allergy Rash/Hives Verified 11/24/20 20:25 clavulanic acid Allergy Rash/Hives Verified 11/24/20 20:25 [From Augmentin] Penicillins Allergy Rash/Hives Verified 11/24/20 20:25 Physical Exam Vitals: Vital Signs Temp Pulse Pulse Resp BP BP Pulse Ox 11/25/20 11:00 97.8 F 91 20 117/60 95 11/25/20 07:43 98.1 F 95 18 120/65 95 11/25/20 04:00 97.9 F 88 20 124/68 95 11/25/20 01:48 90 20 11/25/20 00:00 98.0 F 90 20 102/66 97 11/24/20 20:00 96 20 11/24/20 18:37 98.3 F 96 20 105/70 96 11/24/20 18:18 100.2 F H 115 H 20 97 11/24/20 17:32 126 H 16 97 11/24/20 17:15 22 11/24/20 16:53 142 H 20 121/58 94 L 11/24/20 15:24 100.9 F H 92 18 121/68 93 L Intake and Output 11/24/20 11/25/20 11/25/20 22:59 06:59 14:59 Intake Total 240 640 936 Balance 240 640 936 Intake: Intake, IV Titration 400 400 Amount Magnesium Sulfate-D5w Pmx 100 1 gm In Dextrose/Water 1 100ml.bag @ 100 mls/hr IVPB ONCE ONE Rx#: [id number] Sodium Chloride 0.9% 1, 400 300 000 ml @ 100 mls/hr IV . Q10H [facility] Rx#:[id number] Oral 240 240 536 Other: # Voids 1 2 5 # Bowel Movements 0 Weight 64.41 kg 66.5 kg GENERAL EXAM: Alert, very pleasant 30-year-old female patient, on 2 L nasal cannula, rarely comfortable in no apparent distress. HEAD: Normocephalic. EYES: Normal reaction of pupils, equal size. NOSE: Clear with pink turbinates. THROAT: No erythema or exudates. NECK: No masses, no JVD. CHEST: No chest wall deformity. LUNGS: Equal air entry with crackles in the bilateral posterior bases CVS: S1 and S2 normal with no audible murmur, regular rhythm. ABDOMEN: Normal bowel sounds, no guarding or rigidity. SPINE: No scoliosis or deformity SKIN: No rashes CENTRAL NERVOUS SYSTEM: No focal deficits, tone is normal in all 4 extremities. EXTREMITIES: There is no peripheral edema. No clubbing, no cyanosis. Peripheral pulses are intact. Results - Laboratory Findings CBC and BMP: 11/25/20 07:03 11/25/20 07:03 PT/INR, D-dimer PT 9.6 sec (9.0-12.0) 11/24/20 16:05 INR 0.9 (<1.2) 11/24/20 16:05 Abnormal lab findings: Abnormal Labs 11/24/20 11/24/20 11/24/20 16:05 16:05 16:05 RBC Plt Count Lymphocytes # 0.7 L Sodium 133 L Chloride Carbon Dioxide 21 L BUN 6 L Glucose Calcium AST 47 H Lactate Dehydrogenase 742 H C-Reactive Protein 65.0 H Total Protein Albumin 3.3 L Procalcitonin 0.43 H 11/25/20 11/25/20 07:03 07:03 RBC 3.67 L Plt Count 138 L Lymphocytes # 0.6 L Sodium 135 L Chloride 111 H Carbon Dioxide 19 L BUN 5 L Glucose 101 H Calcium 8.0 L AST 39 H Lactate Dehydrogenase C-Reactive Protein Total Protein 5.2 L Albumin 2.5 L Procalcitonin - Diagnostic Findings Chest x-ray: image reviewed Assessment and Plan Assessment: 1 Acute hypoxic respiratory failure secondary to acute CoVID 19 pneumonia 2 28 weeks gestation 3 History of ASD Plan: The patient was seen and evaluated by Dr. Arce Chest x-ray and labs reviewed Obtain a d-dimer Add dexamethasone, vitamin supplements Nikhilitusmario alberto, Gaye Jones Continue oxygen supplementation Continue normal saline at 100 ML's per hour Continue non-stress testing a fetus per OB We will continue to follow and make further recommendations based on her clinical status I, the cosigning physician, performed a history & physical examination of the patient. Lungs sounds with crackles in the bilateral posterior bases. Maintaining good O2 saturations in the 90s on 2 L/m per nasal cannula. I discussed the assessment and plan of care with my nurse practitioner, Stacy Phipps. I attest to the above note as dictated by her. Time with Patient: Greater than 30
[2020-11-25] MEDS: ALBUTEROL HFA INHALER INHALATION SCH ×3 (15:40→19:28)
[2020-11-25] MEDS: ZINC SULFATE 220 MG CAP PO SCH (20:44)
[2020-11-26] MEDS: ACETAMINOPHEN TAB 325 MG TAB PO PRN ×4 (00:17→22:07)
[2020-11-26] MEDS: guaiFENesin-DM 100-10MG/5ML 10 ML CUP PO PRN ×4 (00:25→22:07)
[2020-11-26] MEDS: SODIUM CHLORIDE 0.9% 1,000 ML IV SCH ×2 (03:10→09:01)
[2020-11-26] MEDS: BENZONATATE 100 MG CAP PO SCH ×3 (07:38→21:03)
[2020-11-26] MEDS: ALBUTEROL HFA INHALER INHALATION SCH ×4 (08:55→20:15)
[2020-11-26] MEDS: CHOLECALCIFEROL 25 MCG (1000 IU) TABLET PO SCH (08:59)
[2020-11-26] MEDS: dexAMETHasone 2 MG TAB PO SCH (08:59)
[2020-11-26] MEDS: ASCORBIC ACID 500 MG TAB PO SCH (08:59)
[2020-11-26] MEDS: PRENATAL VIT-IRON-FOLIC ACID 1 EACH CAP PO SCH (09:01)
--- NOTE | 2020-11-26 11:32 | P.PN ---
Subjective Progress Note Date: 11/26/20 This is a very pleasant 30-year-old female patient who has a history of a VSD heart murmur and is currently 28 weeks . Oxygen 4-5 days ago she developed increasing shortness of breath cough congestion and fever. She was tested positive for chronic virus on 11/21/2020. Her symptoms progressed and she presented to the emergency room yesterday with ongoing shortness of breath, cough and congestion. No nausea vomiting or diarrhea. Non-stress testing of the fetus has revealed good results. Chest x-ray does reveal bilateral patchy infiltrates consistent with CoVID 19 pneumonia. White count 5.4. Hemoglobin 11.9. Lymphocytes 0.6. Sodium 135. Potassium 3.8. Creatinine 0.58. LDH 742. C-reactive protein 65. Pro-calcitonin 0.43. She is seen today in consultation on the selective care unit. She is currently sitting up in bed. Awake and alert in no acute distress. He does have the continued dry nonproductive cough. T-max of 100.9. Currently afebrile. She is receiving 0.9 normal saline at 100 ML's per hour. vitamins. 11/26/2020 the patient is being seen for a follow-up. This patient is 30 and the patient has a VSD and she is currently with 28 weeks of gestation. The patient also has an acute Covid 19 related pneumonia with secondary hypoxic respiratory failure. The patient is currently on oxygen at 2 L per minute nasal cannula with a pulse ox of 93%. The chest x-ray at time of admission showed bilateral lower lobe pulmonary infiltrates. The patient was also seen by [employer] [employer]. The patient was seen in consultation by our services yesterday. D ecadron was added at a dose of 6 mg IV daily basis. The patient has a white cell count of 5.4 from yesterday with a hemoglobin of 11.9. D-dimer was 1.33. The patient is afebrile on normal saline at the rate of 100 mL an hour. The patient was seen by [employer] [employer] and the recommendation was to continue assessing the well-being on a daily basis with a nonstress tests. Today's evaluation, the patient is still having pain across her left chest area. The pain is constant whether she is breathing or not. She is coughing. She is unable to bring up much sputum. She is quite uncomfortable especially along the left side of the chest no fever. No chills. White cell count today is nonelevated from yesterday. D-dimer from yesterday is at 1.3. The pro-calcitonin level was 0.43. Objective - Vital Signs Vital signs: Vital Signs Temp 98.3 F 11/26/20 08:00 Pulse 116 H 11/26/20 08:00 Resp 20 11/26/20 08:00 BP 121/65 11/26/20 08:00 Pulse Ox 95 11/26/20 08:00 Intake & Output 11/25/20 11/26/20 11/26/20 18:59 06:59 18:59 Intake Total 1172 Balance 1172 Intake: Intake, IV Titration 400 Amount Magnesium Sulfate-D5w Pmx 100 1 gm In Dextrose/Water 1 100ml.bag @ 100 mls/hr IVPB ONCE ONE Rx#: [id number] Sodium Chloride 0.9% 1, 300 000 ml @ 100 mls/hr IV . Q10H [facility] Rx#:[id number] Oral 772 Other: # Voids 1 1 1 # Bowel Movements 0 - Exam GENERAL EXAM: Alert, very pleasant 30-year-old female patient, on 2 L nasal cannula, rarely comfortable in no apparent distress. HEAD: Normocephalic. EYES: Normal reaction of pupils, equal size. NOSE: Clear with pink turbinates. THROAT: No erythema or exudates. NECK: No masses, no JVD. CHEST: No chest wall deformity. LUNGS: Equal air entry with crackles in the bilateral posterior bases CVS: S1 and S2 normal with no audible murmur, regular rhythm. ABDOMEN: Normal bowel sounds, no guarding or rigidity. SPINE: No scoliosis or deformity SKIN: No rashes CENTRAL NERVOUS SYSTEM: No focal deficits, tone is normal in all 4 extremities. EXTREMITIES: There is no peripheral edema. No clubbing, no cyanosis. Peripheral pulses are intact. - Labs CBC & Chem 7: 11/25/20 07:03 11/25/20 07:03 Labs: Abnormal Lab Results - Last 24 Hours (Table) 11/25/20 Range/Units 15:46 D-Dimer 1.33 H (<0.60) mg/L FEU Assessment and Plan Plan: 1 Acute hypoxic respiratory failure secondary to acute CoVID 19 pneumonia. The patient currently is on 2 L about 2 by nasal cannula. She is having significant amount of pain along the left side of the chest. Pulmonary embolism is out to be less likely. D-dimer was at 1.3. The patient is not receiving any form of anticoagulation for now. She is short of breath and she is coughing. Main complaint however remains pain across the left chest. The pain is probably skeletal in nature rather than related to pneumonia or pulmonary embolism. It may be related to her previous history of cough and. 2 28 weeks gestation, monitoring showed no major abnormalities and [employer] is on the case 3 History of VSD with secondary murmur Plan: I'm going to suggest to repeat a d-dimer level and the pro-calcitonin level and obtain Dopplers of the lower extremity than the same time start the patient on Lovenox for DVT prophylaxis 40 milligrams subcu for DVT prophylaxis Repeat chest x-ray along with abdominal shielding. We'll try to avoid CT angiogram due to the radiation involved with computed tomography scan of the chest. Repeat inflammatory markers in a.m. Continue dexamethasone, vitamin supplements Gaye Ge Continue oxygen supplementation Continue normal saline at 100 ML's per hour Continue non-stress testing a fetus per OB We will continue to follow and make further recommendations based on her clinical status
[2020-11-26 12:12] LABS: C Reactive Protein 38.1 mg/L (<10.0)
--- NOTE | 2020-11-26 12:18 | XR ---
EXAMINATION TYPE: XR chest 1V portable DATE OF EXAM: 11/26/2020 COMPARISON: 11/24/2020 INDICATION: Covid TECHNIQUE: Single frontal view of the chest is obtained. FINDINGS: The heart size is normal. The pulmonary vasculature is normal. Patchy subsegmental infiltrates are present within the mid to lower lung horner bilaterally. Findings have improved from comparison. IMPRESSION: 1. Patchy bilateral infiltrates can be compatible with atypical pneumonia. 2. Findings have improved over the interval.
--- NOTE | 2020-11-26 12:37 | US ---
EXAMINATION TYPE: US venous doppler duplex LE DATE OF EXAM: 11/26/2020 12:11 PM COMPARISON: NONE CLINICAL HISTORY: elevated d-dimer. Elevated D-Dimer, patient 28 weeks , COVID, pain bilatera l legs SIDE PERFORMED: bilateral TECHNIQUE: The lower extremity deep venous system is examined utilizing real time linear array sonog tyrese with graded compression, doppler sonography and color-flow sonography. VESSELS IMAGED: Common Femoral Vein Deep Femoral Vein Greater Saphenous Vein * Femoral Vein Popliteal Vein Small Saphenous Vein * Proximal Calf Veins (* superficial vessels) Right Leg: no evidence of DVT as visualized Left Leg: no evidence of DVT as visualized. Rouleaux flow noted popliteal vein IMPRESSION: 1. No ultrasound evidence of deep venous thrombosis bilateral lower extremities. 2. There is Rouleaux flow in the left popliteal vein.
[2020-11-26 15:14] LABS: Appearance,Urine Clear (Clear); Bilirubin,Urine Negative (Negative); Blood,Urine Negative (Negative); Color,Urine Yellow; Glucose,Urine (UA) Negative (Negative); Ketones,Urine 1+ (Negative); Leukocyte Esterase,Urine Negative (Negative); Nitrite,Urine Negative (Negative); Protein,Urine Negative (Negative); Specific Gravity,Urine 1.007 (1.001-1.035); Urobilinogen,Urine <2.0 mg/dL (<2.0)
[2020-11-26] MEDS: ENOXAPARIN 40 MG/0.4 ML SYRINGE SQ SCH (16:49)
[2020-11-26] MEDS: ZINC SULFATE 220 MG CAP PO SCH (21:03)
--- NOTE | 2020-11-26 22:50 | P.PN ---
Subjective Progress Note Date: 11/26/20 Principal diagnosis: COVID Pneumonia Mrs. Flowers is a 30-year-old female presents for evaluation of cough, fever. Patient was diagnosed with coronavirus on November 21. She is currently 28 weeks . She's had some nausea and dry heaving. She states she has not felt well for the past 3 days. She does have some shortness of breath. No lower extremity pain or swelling. No complications with this . Patient is otherwise healthy. Patient was given a dose of Decadron in ER. Patient is hyponatremic is receiving IV fluids. Magnesium is low which will be replaced. Patient has symptoms of congestion which started about 9 days ago but her actual symptoms of body aches fevers started 5 days ago. Patient's hyponatremia improved patient had a chest x-ray just showing extensive infiltrates in bilateral lower lobes. On 11/26/2020 -patient was seen and examined today. She is comfortably sitting up in a chair by the bedside. Patient complains of pain over the left side of the chest constant in nature with no radiation. She is having dry cough. She denies having any chest pain or palpitations. No abdominal pain nausea vomiting or diarrhea. No dysuria or hematuria. She denies having any swelling of her lower extremities. On reviewing her vitals T-max 97.8, heart rate 115, respiratory rate 20, blood pressure 113/69, saturating at 94% on 2 L of oxygen. On reviewing her labs white count of 5.4, hemoglobin 11.9, platelets 138. Sodium 135, potassium 3.8, chloride 111, bicarb 19, BUN 5 creatinine 0.58 Active Medications Acetaminophen (Acetaminophen Tab 325 Mg Tab) 650 mg PO Q6HR PRN PRN Reason: Mild Pain or Fever > 100.5 Last Admin: 11/26/20 22:07 Dose: 650 mg Documented by: Albuterol Sulfate (Albuterol Hfa Inhaler) 2 puff INHALATION RT-QID [facility] Last Admin: 11/26/20 20:15 Dose: 2 puff Documented by: Ascorbic Acid (Ascorbic Acid 500 Mg Tab) 500 mg PO DAILY [facility] Last Admin: 11/26/20 08:59 Dose: 500 mg Documented by: Benzonatate (Benzonatate 100 Mg Cap) 100 mg PO TID [facility] Last Admin: 11/26/20 21:03 Dose: 100 mg Documented by: Cholecalciferol (Cholecalciferol 25 Mcg (1000 Iu) Tablet) 25 mcg PO DAILY [facility] Last Admin: 11/26/20 08:59 Dose: 25 mcg Documented by: Dexamethasone (Dexamethasone 2 Mg Tab) 6 mg PO DAILY [facility] Last Admin: 11/26/20 08:59 Dose: 6 mg Documented by: Enoxaparin Sodium (Enoxaparin 40 Mg/0.4 Ml Syringe) 40 mg SQ DAILY [facility] Last Admin: 11/26/20 16:49 Dose: 40 mg Documented by: Guaifenesin/Dextromethorphan (Guaifenesin-Dm 100-10mg/5ml 10 Ml Cup) 10 ml PO Q6H PRN PRN Reason: Cough Last Admin: 11/26/20 22:07 Dose: 10 ml Documented by: Sodium Chloride (Saline 0.9%) 1,000 mls @ 100 mls/hr IV .Q10H [facility] Last Admin: 11/26/20 09:01 Dose: 100 mls/hr Documented by: Multivi/Iron Carb/Fe Sulf/FA/Prenat ( Zci-Zmkr-Kkjun Acid 1 Each Cap) 1 each PO DAILY [facility] Last Admin: 11/26/20 09:01 Dose: 1 each Documented by: Naloxone HCl (Naloxone 0.4 Mg/Ml 1 Ml Vial) 0.2 mg IV Q2M PRN PRN Reason: Opioid Reversal Zinc Sulfate (Zinc Sulfate 220 Mg Cap) 220 mg PO [facility] Last Admin: 11/26/20 21:03 Dose: 220 mg Documented by: Objective - Vital Signs Vital signs: Vital Signs Temp 98.3 F 11/26/20 08:00 Pulse 116 H 11/26/20 08:00 Resp 20 11/26/20 08:00 BP 121/65 11/26/20 08:00 Pulse Ox 95 11/26/20 08:00 Intake & Output 11/25/20 11/26/20 11/26/20 18:59 06:59 18:59 Intake Total 1172 Balance 1172 Intake: Intake, IV Titration 400 Amount Magnesium Sulfate-D5w Pmx 100 1 gm In Dextrose/Water 1 100ml.bag @ 100 mls/hr IVPB ONCE ONE Rx#: [id number] Sodium Chloride 0.9% 1, 300 000 ml @ 100 mls/hr IV . Q10H [facility] Rx#:[id number] Oral 772 Other: # Voids 1 1 1 # Bowel Movements 0 - Exam PHYSICAL EXAMINATION: GENERAL: The patient is alert and oriented x3, not in any acute distress. Well developed, well nourished. HEENT: Pupils are round and equally reacting to light. EOMI. No scleral icterus. No conjunctival pallor. Normocephalic, atraumatic. No pharyngeal erythema. No thyromegaly. CARDIOVASCULAR: S1 and S2 present. No murmurs, rubs, or gallops. PULMONARY: Chest is clear to auscultation, no wheezing or crackles. ABDOMEN: MUSCULOSKELETAL: No joint swelling or deformity. EXTREMITIES: No cyanosis, clubbing, mild pedal edema. NEUROLOGICAL: Gross neurological examination did not reveal any focal deficits. SKIN: No rashes. - Labs CBC & Chem 7: 11/25/20 07:03 11/25/20 07:03 Labs: Abnormal Lab Results - Last 24 Hours (Table) 11/25/20 11/26/20 11/26/20 Range/Units 15:46 11:44 11:44 D-Dimer 1.33 H 1.44 H (<0.60) mg/L FEU C-Reactive Protein 38.1 H (<10.0) mg/L Assessment and Plan Assessment: ASSESSMENT Bilateral pneumonia secondary to Covid 28 weeks of gestation Hypovolemic hyponatremia Hypomagnesemia Sinus tachycardia Elevated inflammatory markers PLAN: As the patient has mild swelling of her lower extremities, bilateral lower extremity Doppler was ordered by pulmonary and it came back as negative for DVT, Rouleaux flow noted in left popliteal vein. She has been started on DVT prophylaxis with Lovenox. Repeat chest x-ray being done for tomorrow morning. Continue with the rest of the current medication regimen. Patient was tearful during the conversation, she is anxious about her baby's health, reassurance provided. CONDUIT MECHANIC following for . Further recommendations to follow depending on the progress of her patient.
[2020-11-27] MEDS: SODIUM CHLORIDE 0.9% 1,000 ML IV SCH ×3 (00:49→16:37)
[2020-11-27] MEDS: ACETAMINOPHEN TAB 325 MG TAB PO PRN (03:18)
[2020-11-27] MEDS: dexAMETHasone 2 MG TAB PO SCH (07:22)
[2020-11-27] MEDS: BENZONATATE 100 MG CAP PO SCH ×3 (07:22→20:44)
[2020-11-27] MEDS: CHOLECALCIFEROL 25 MCG (1000 IU) TABLET PO SCH (07:22)
[2020-11-27] MEDS: ENOXAPARIN 40 MG/0.4 ML SYRINGE SQ SCH (07:22)
[2020-11-27] MEDS: ASCORBIC ACID 500 MG TAB PO SCH (07:22)
[2020-11-27] MEDS: PRENATAL VIT-IRON-FOLIC ACID 1 EACH CAP PO SCH (07:22)
[2020-11-27] MEDS: guaiFENesin-DM 100-10MG/5ML 10 ML CUP PO PRN ×3 (07:36→18:59)
[2020-11-27] MEDS: ALBUTEROL HFA INHALER INHALATION SCH ×4 (09:13→22:05)
[2020-11-27 11:30] VITALS: BMI 24.3
[2020-11-27 11:57] LABS: Basophils # (A) 0.03 X 10*3/uL (0.00-0.10); Basophils % (A) 0.4 %; Eosinophils # (A) 0.01 X 10*3/uL (0.04-0.35); Eosinophils % (A) 0.1 %; HCT 32.9 % (37.2-46.3); HGB 10.9 g/dL (12.0-15.0); Lymphocytes # (A) 1.05 X 10*3/uL (0.90-5.00); MCH 33.2 pg (27.0-32.0); MCHC 33.1 g/dL (32.0-37.0); MCV 100.3 fL (80.0-97.0); Mean Platelet Volume 10.1 fL (9.5-12.2); Monocytes # (A) 0.45 X 10*3/uL (0.20-1.00); Monocytes % (A) 5.6 %; Neutrophils # (A) 6.18 X 10*3/uL (1.80-7.70); Neutrophils % (A) 76.2 %; Platelet Count 173 X 10*3/uL (140-440); RBC 3.28 X 10*6/uL (4.10-5.20); RDW 13.9 % (11.5-14.5)
[2020-11-27 12:45] LABS: African American GFR (CKD) 140.8 (60.0-200.0); Anion Gap 9.2 mmol/L (4.00-12.00); Calcium 8.3 mg/dL (8.7-10.3); Carbon Dioxide 22.8 mmol/L (21.6-31.8); Non-African American GFR(CKD) 121.5 (60.0-200.0); Potassium 4.1 mmol/L (3.5-5.5)
--- NOTE | 2020-11-27 14:08 | P.PN ---
Subjective Progress Note Date: 11/27/20 This is a very pleasant 30-year-old female patient who has a history of a VSD heart murmur and is currently 28 weeks . Oxygen 4-5 days ago she developed increasing shortness of breath cough congestion and fever. She was tested positive for chronic virus on 11/21/2020. Her symptoms progressed and she presented to the emergency room yesterday with ongoing shortness of breath, cough and congestion. No nausea vomiting or diarrhea. Non-stress testing of the fetus has revealed good results. Chest x-ray does reveal bilateral patchy infiltrates consistent with CoVID 19 pneumonia. White count 5.4. Hemoglobin 11.9. Lymphocytes 0.6. Sodium 135. Potassium 3.8. Creatinine 0.58. LDH 742. C-reactive protein 65. Pro-calcitonin 0.43. She is seen today in consultation on the selective care unit. She is currently sitting up in bed. Awake and alert in no acute distress. He does have the continued dry nonproductive cough. T-max of 100.9. Currently afebrile. She is receiving 0.9 normal saline at 100 ML's per hour. vitamins. 11/26/2020 the patient is being seen for a follow-up. This patient is 30 and the patient has a VSD and she is currently with 28 weeks of gestation. The patient also has an acute Covid 19 related pneumonia with secondary hypoxic respiratory failure. The patient is currently on oxygen at 2 L per minute nasal cannula with a pulse ox of 93%. The chest x-ray at time of admission showed bilateral lower lobe pulmonary infiltrates. The patient was also seen by NETWORK SUPPORT ANALYST. The patient was seen in consultation by our services yesterday. D ecadron was added at a dose of 6 mg IV daily basis. The patient has a white cell count of 5.4 from yesterday with a hemoglobin of 11.9. D-dimer was 1.33. The patient is afebrile on normal saline at the rate of 100 mL an hour. The patient was seen by NETWORK SUPPORT ANALYST and the recommendation was to continue assessing the well-being on a daily basis with a nonstress tests. Today's evaluation, the patient is still having pain across her left chest area. The pain is constant whether she is breathing or not. She is coughing. She is unable to bring up much sputum. She is quite uncomfortable especially along the left side of the chest no fever. No chills. White cell count today is nonelevated from yesterday. D-dimer from yesterday is at 1.3. The pro-calcitonin level was 0.43. On 11/27/2020 I'm seeing the patient for a follow-up. She has acute Covid 19 related pneumonia. She is on 2 L of oxygen by nasal cannula. He also start the patient on Lovenox yesterday. Her d-dimer was 1.33. She was having significant amount of pain along her left chest yesterday. Based on that, this chest x-ray was repeated and the patient was found to have interval improvement of bilateral pulmonary infiltrates that were seen earlier. There is obvious improvement in aeration of the lungs based on the chest x-ray was done yesterday. Today, the patient is reporting improvement in her pain pH is still coughing although less in her chest wall pain is improved considerably compared to yesterday. UA is negative. monitoring is being done in terms of heart rate. Pro- calcitonin level 0.37. On Room Air, Her Pulse Ox Was 96% at rest. Objective - Vital Signs Vital signs: Vital Signs Temp 98.2 F 11/27/20 09:36 Pulse 97 11/27/20 09:36 Resp 19 11/27/20 09:36 BP 110/67 11/27/20 09:36 Pulse Ox 98 11/27/20 09:36 Intake & Output 11/26/20 11/27/20 11/27/20 18:59 06:59 18:59 Intake Total 240 Balance 240 Weight 66.5 kg Intake: Oral 240 Other: Voiding Method Toilet # Voids 5 2 - Exam GENERAL EXAM: Alert, very pleasant 30-year-old female patient, on room air oxygen for now HEAD: Normocephalic. EYES: Normal reaction of pupils, equal size. NOSE: Clear with pink turbinates. THROAT: No erythema or exudates. NECK: No masses, no JVD. CHEST: No chest wall deformity. LUNGS: Equal air entry with crackles in the bilateral posterior bases CVS: S1 and S2 normal with no audible murmur, regular rhythm. ABDOMEN: Normal bowel sounds, no guarding or rigidity. SPINE: No scoliosis or deformity SKIN: No rashes CENTRAL NERVOUS SYSTEM: No focal deficits, tone is normal in all 4 extremities. EXTREMITIES: There is no peripheral edema. No clubbing, no cyanosis. Peripheral pulses are intact. - Labs CBC & Chem 7: 11/27/20 07:10 11/27/20 07:10 Labs: Abnormal Lab Results - Last 24 Hours (Table) 11/26/20 11/26/20 11/27/20 Range/Units 11:44 14:00 07:10 RBC 3.28 L (4.10-5.20) X 10*6/uL Hgb 10.9 L (12.0-15.0) g/dL Hct 32.9 L (37.2-46.3) % MCV 100.3 H (80.0-97.0) fL MCH 33.2 H (27.0-32.0) pg Immature Gran # 0.38 H (0.00-0.04) X 10*3/uL Eosinophils # 0.01 L (0.04-0.35) X 10*3/uL BUN (9.0-27.0) mg/dL BUN/Creatinine Ratio (12.00-20.00) Ratio Calcium (8.7-10.3) mg/dL Procalcitonin 0.37 H (0.02-0.09) ng/mL Urine Ketones 1+ H (Negative) 11/27/20 Range/Units 07:10 RBC (4.10-5.20) X 10*6/uL Hgb (12.0-15.0) g/dL Hct (37.2-46.3) % MCV (80.0-97.0) fL MCH (27.0-32.0) pg Immature Gran # (0.00-0.04) X 10*3/uL Eosinophils # (0.04-0.35) X 10*3/uL BUN 6.0 L (9.0-27.0) mg/dL BUN/Creatinine Ratio 10.00 L (12.00-20.00) Ratio Calcium 8.3 L (8.7-10.3) mg/dL Procalcitonin (0.02-0.09) ng/mL Urine Ketones (Negative) Assessment and Plan Plan: 1 Acute hypoxic respiratory failure secondary to acute CoVID 19 pneumonia. Clinically the patient is improved. Oxygenation is improved. Chest wall pain is improved. Chest x-ray findings are also improved. D-dimer was at 1.3 and the patient is on Lovenox for DVT prophylaxis. The patient is also on Decadron 6 mg by mouth daily. We have weaned her down to room air oxygen for now. Main complaint however remains pain across the left chest. The pain is probably skeletal in nature rather than related to pneumonia or pulmonary embolism. It may be related to her previous history of cough and this has improved considerably since yesterday. 2 28 weeks gestation, monitoring showed no major abnormalities and NETWORK SUPPORT ANALYST is on the case 3 History of VSD with secondary murmur Plan: Clinically doing well and she has been weaned down to room air oxygen Chest x-ray is improving Doppler of the lower extremities negative Continue Decadron 6 mg by mouth daily for a total of 10 days Lovenox for DVT prophylaxis 40 milligrams subcu for DVT prophylaxis Continue dexamethasone, vitamin supplements Robitussin, Tessalon Perles IV fluids to 50 mL an hour Continue non-stress testing a fetus per OB We will continue to follow and make further recommendations based on her clinical status Possible home tomorrow.
[2020-11-27] MEDS: ZINC SULFATE 220 MG CAP PO SCH (20:44)
--- NOTE | 2020-11-27 23:14 | P.PN ---
Subjective Progress Note Date: 11/27/20 Principal diagnosis: COVID Pneumonia Mrs. Flowers is a 30-year-old female presents for evaluation of cough, fever. Patient was diagnosed with coronavirus on November 21. She is currently 28 weeks . She's had some nausea and dry heaving. She states she has not felt well for the past 3 days. She does have some shortness of breath. No lower extremity pain or swelling. No complications with this . Patient is otherwise healthy. Patient was given a dose of Decadron in ER. Patient is hyponatremic is receiving IV fluids. Magnesium is low which will be replaced. Patient has symptoms of congestion which started about 9 days ago but her actual symptoms of body aches fevers started 5 days ago. Patient's hyponatremia improved patient had a chest x-ray just showing extensive infiltrates in bilateral lower lobes. On 11/26/2020 -patient was seen and examined today. She is comfortably sitting up in a chair by the bedside. Patient complains of pain over the left side of the chest constant in nature with no radiation. She is having dry cough. She denies having any chest pain or palpitations. No abdominal pain nausea vomiting or diarrhea. No dysuria or hematuria. She denies having any swelling of her lower extremities. On reviewing her vitals T-max 97.8, heart rate 115, respiratory rate 20, blood pressure 113/69, saturating at 94% on 2 L of oxygen. On reviewing her labs white count of 5.4, hemoglobin 11.9, platelets 138. Sodium 135, potassium 3.8, chloride 111, bicarb 19, BUN 5 creatinine 0.58 On 11/27/2020 patient was seen and examined at bedside. Patient states that she feels much better compared to yesterday in terms of her breathing. She continues to have dry cough. She states that when she puts ice on the left side of the chest it helps her with the chest wall pain. Patient denies to have any fever chills or rigors. No palpitations. No abdominal pain nausea vomiting or diarrhea. No dysuria or hematuria. On reviewing the vitals T-max of 98.6, heart rate between 90s 200s, respiratory rate 18, saturating at 95% on room air. Blood pressure 115/65. On reviewing the labs white count of 8, hemoglobin 10.9, platelets 173. Sodium 140, potassium 4.1, chloride 108, bicarb 22, BUN 6, creatinine 0.6. Active Medications Acetaminophen (Acetaminophen Tab 325 Mg Tab) 650 mg PO Q6HR PRN PRN Reason: Mild Pain or Fever > 100.5 Last Admin: 11/27/20 03:18 Dose: 650 mg Documented by: Albuterol Sulfate (Albuterol Hfa Inhaler) 2 puff INHALATION RT-QID [facility] Last Admin: 11/27/20 22:05 Dose: 2 puff Documented by: Ascorbic Acid (Ascorbic Acid 500 Mg Tab) 500 mg PO DAILY [facility] Last Admin: 11/27/20 07:22 Dose: 500 mg Documented by: Benzonatate (Benzonatate 100 Mg Cap) 100 mg PO TID [facility] Last Admin: 11/27/20 20:44 Dose: 100 mg Documented by: Cholecalciferol (Cholecalciferol 25 Mcg (1000 Iu) Tablet) 25 mcg PO DAILY [facility] Last Admin: 11/27/20 07:22 Dose: 25 mcg Documented by: Dexamethasone (Dexamethasone 2 Mg Tab) 6 mg PO DAILY [facility] Last Admin: 11/27/20 07:22 Dose: 6 mg Documented by: Enoxaparin Sodium (Enoxaparin 40 Mg/0.4 Ml Syringe) 40 mg SQ DAILY [facility] Last Admin: 11/27/20 07:22 Dose: 40 mg Documented by: Guaifenesin/Dextromethorphan (Guaifenesin-Dm 100-10mg/5ml 10 Ml Cup) 10 ml PO Q6H PRN PRN Reason: Cough Last Admin: 11/27/20 18:59 Dose: 10 ml Documented by: Sodium Chloride (Saline 0.9%) 1,000 mls @ 100 mls/hr IV .Q10H [facility] Last Admin: 11/27/20 16:37 Dose: 100 mls/hr Documented by: Multivi/Iron Carb/Fe Sulf/FA/Prenat ( Vlb-Prxv-Yxulo Acid 1 Each Cap) 1 each PO DAILY [facility] Last Admin: 11/27/20 07:22 Dose: 1 each Documented by: Naloxone HCl (Naloxone 0.4 Mg/Ml 1 Ml Vial) 0.2 mg IV Q2M PRN PRN Reason: Opioid Reversal Zinc Sulfate (Zinc Sulfate 220 Mg Cap) 220 mg PO HS [facility] Last Admin: 11/27/20 20:44 Dose: 220 mg Documented by: Objective - Vital Signs Vital signs: Vital Signs Temp 98.2 F 11/27/20 09:36 Pulse 97 11/27/20 09:36 Resp 19 11/27/20 09:36 BP 110/67 11/27/20 09:36 Pulse Ox 98 11/27/20 09:36 Intake & Output 11/26/20 11/27/20 11/27/20 18:59 06:59 18:59 Intake Total 240 Balance 240 Weight 66.5 kg Intake: Oral 240 Other: Voiding Method Toilet # Voids 5 2 - Exam PHYSICAL EXAMINATION: GENERAL: The patient is alert and oriented x3, not in any acute distress. Well developed, well nourished. HEENT: Pupils are round and equally reacting to light. EOMI. No scleral icterus. No conjunctival pallor. CARDIOVASCULAR: S1 and S2 present. . PULMONARY: Chest is clear to auscultation, no wheezing or crackles. ABDOMEN: MUSCULOSKELETAL: No joint swelling or deformity. EXTREMITIES: No cyanosis, clubbing, mild pedal edema. NEUROLOGICAL: Gross neurological examination did not reveal any focal deficits. SKIN: No rashes. - Labs CBC & Chem 7: 11/27/20 07:10 11/27/20 07:10 Labs: Abnormal Lab Results - Last 24 Hours (Table) 11/26/20 11/26/20 11/27/20 Range/Units 11:44 14:00 07:10 RBC 3.28 L (4.10-5.20) X 10*6/uL Hgb 10.9 L (12.0-15.0) g/dL Hct 32.9 L (37.2-46.3) % MCV 100.3 H (80.0-97.0) fL MCH 33.2 H (27.0-32.0) pg Immature Gran # 0.38 H (0.00-0.04) X 10*3/uL Eosinophils # 0.01 L (0.04-0.35) X 10*3/uL BUN (9.0-27.0) mg/dL BUN/Creatinine Ratio (12.00-20.00) Ratio Calcium (8.7-10.3) mg/dL Procalcitonin 0.37 H (0.02-0.09) ng/mL Urine Ketones 1+ H (Negative) 11/27/20 Range/Units 07:10 RBC (4.10-5.20) X 10*6/uL Hgb (12.0-15.0) g/dL Hct (37.2-46.3) % MCV (80.0-97.0) fL MCH (27.0-32.0) pg Immature Gran # (0.00-0.04) X 10*3/uL Eosinophils # (0.04-0.35) X 10*3/uL BUN 6.0 L (9.0-27.0) mg/dL BUN/Creatinine Ratio 10.00 L (12.00-20.00) Ratio Calcium 8.3 L (8.7-10.3) mg/dL Procalcitonin (0.02-0.09) ng/mL Urine Ketones (Negative) Assessment and Plan Assessment: ASSESSMENT Bilateral pneumonia secondary to Covid 28 weeks of gestation Hypovolemic hyponatremia Hypomagnesemia Sinus tachycardia Elevated inflammatory markers PLAN: As the patient has mild swelling of her lower extremities, bilateral lower extremity Doppler was ordered by pulmonary and it came back as negative for DVT, Rouleaux flow noted in left popliteal vein. She has been started on DVT prophylaxis with Lovenox. Continue with the rest of the current medication regimen- Decadron, vitamin C, zinc supplements, vitamins and breathing treatments. GEAR TOOTH LAPPING MACHINE OPERATOR following for . Patient doing much better compared to yesterday. Further recommendations to follow depending on the progress of her patient.
[2020-11-28] MEDS: SODIUM CHLORIDE 0.9% 1,000 ML IV SCH ×2 (05:11→13:59)
[2020-11-28] MEDS: ENOXAPARIN 40 MG/0.4 ML SYRINGE SQ SCH (07:22)
[2020-11-28] MEDS: CHOLECALCIFEROL 25 MCG (1000 IU) TABLET PO SCH (07:23)
[2020-11-28] MEDS: dexAMETHasone 2 MG TAB PO SCH (07:23)
[2020-11-28] MEDS: PRENATAL VIT-IRON-FOLIC ACID 1 EACH CAP PO SCH (07:23)
[2020-11-28] MEDS: BENZONATATE 100 MG CAP PO SCH (07:23)
[2020-11-28] MEDS: ASCORBIC ACID 500 MG TAB PO SCH (07:23)
[2020-11-28] MEDS: guaiFENesin-DM 100-10MG/5ML 10 ML CUP PO PRN (07:23)
[2020-11-28] MEDS: ALBUTEROL HFA INHALER INHALATION SCH ×3 (09:30→15:55)
[2020-11-28 11:16] VITALS: PULSE 97; TEMP 98
--- NOTE | 2020-11-28 15:16 | P.PN ---
Subjective Progress Note Date: 11/28/20 This is a very pleasant 30-year-old female patient who has a history of a VSD heart murmur and is currently 28 weeks . Oxygen 4-5 days ago she developed increasing shortness of breath cough congestion and fever. She was tested positive for chronic virus on 11/21/2020. Her symptoms progressed and she presented to the emergency room yesterday with ongoing shortness of breath, cough and congestion. No nausea vomiting or diarrhea. Non-stress testing of the fetus has revealed good results. Chest x-ray does reveal bilateral patchy infiltrates consistent with CoVID 19 pneumonia. White count 5.4. Hemoglobin 11.9. Lymphocytes 0.6. Sodium 135. Potassium 3.8. Creatinine 0.58. LDH 742. C-reactive protein 65. Pro-calcitonin 0.43. She is seen today in consultation on the selective care unit. She is currently sitting up in bed. Awake and alert in no acute distress. He does have the continued dry nonproductive cough. T-max of 100.9. Currently afebrile. She is receiving 0.9 normal saline at 100 ML's per hour. vitamins. 11/26/2020 the patient is being seen for a follow-up. This patient is 30 and the patient has a VSD and she is currently with 28 weeks of gestation. The patient also has an acute Covid 19 related pneumonia with secondary hypoxic respiratory failure. The patient is currently on oxygen at 2 L per minute nasal cannula with a pulse ox of 93%. The chest x-ray at time of admission showed bilateral lower lobe pulmonary infiltrates. The patient was also seen by [facility]. The patient was seen in consultation by our services yesterday. D ecadron was added at a dose of 6 mg IV daily basis. The patient has a white cell count of 5.4 from yesterday with a hemoglobin of 11.9. D-dimer was 1.33. The patient is afebrile on normal saline at the rate of 100 mL an hour. The patient was seen by [facility] and the recommendation was to continue assessing the well-being on a daily basis with a nonstress tests. Today's evaluation, the patient is still having pain across her left chest area. The pain is constant whether she is breathing or not. She is coughing. She is unable to bring up much sputum. She is quite uncomfortable especially along the left side of the chest no fever. No chills. White cell count today is nonelevated from yesterday. D-dimer from yesterday is at 1.3. The pro-calcitonin level was 0.43. On 11/27/2020 I'm seeing the patient for a follow-up. She has acute Covid 19 related pneumonia. She is on 2 L of oxygen by nasal cannula. He also start the patient on Lovenox yesterday. Her d-dimer was 1.33. She was having significant amount of pain along her left chest yesterday. Based on that, this chest x-ray was repeated and the patient was found to have interval improvement of bilateral pulmonary infiltrates that were seen earlier. There is obvious improvement in aeration of the lungs based on the chest x-ray was done yesterday. Today, the patient is reporting improvement in her pain pH is still coughing although less in her chest wall pain is improved considerably compared to yesterday. UA is negative. monitoring is being done in terms of heart rate. Pro- calcitonin level 0.37. On Room Air, Her Pulse Ox Was 96% at rest. Evaluation, the patient is still having some limited cough, pulse ox on room is a 94% without any significant desaturation. The patient is feeling well. No other new complaints for now. She is breathing comfortably. No nausea. No vomiting. No diarrhea. No abdominal pain. No change in mental status. No other significant events over the past 24 hours. Objective - Vital Signs Vital signs: Vital Signs Temp 98.0 F 11/28/20 10:26 Pulse 97 11/28/20 10:26 Resp 13 11/28/20 10:26 BP 108/62 11/28/20 10:26 Pulse Ox 96 11/28/20 10:26 Intake & Output 11/27/20 11/28/20 11/28/20 18:59 06:59 18:59 Weight 66.5 kg Other: Voiding Method Toilet # Voids 3 2 - Exam GENERAL EXAM: Alert, very pleasant 30-year-old female patient, on room air oxygen for now HEAD: Normocephalic. EYES: Normal reaction of pupils, equal size. NOSE: Clear with pink turbinates. THROAT: No erythema or exudates. NECK: No masses, no JVD. CHEST: No chest wall deformity. LUNGS: Equal air entry with crackles in the bilateral posterior bases CVS: S1 and S2 normal with no audible murmur, regular rhythm. ABDOMEN: Normal bowel sounds, no guarding or rigidity. SPINE: No scoliosis or deformity SKIN: No rashes CENTRAL NERVOUS SYSTEM: No focal deficits, tone is normal in all 4 extremities. EXTREMITIES: There is no peripheral edema. No clubbing, no cyanosis. Peripheral pulses are intact. - Labs CBC & Chem 7: 11/27/20 07:10 11/27/20 07:10 Assessment and Plan Plan: 1 Acute hypoxic respiratory failure secondary to acute CoVID 19 pneumonia. Clinically the patient is improved. Oxygenation is improved. Chest wall pain is improved. Chest x-ray findings are also improved. She is currently on room air oxygen 2 28 weeks gestation, monitoring showed no major abnormalities and [facility] is on the case 3 History of VSD with secondary murmur Plan: Clinically doing well and she has been weaned down to room air oxygen Chest x-ray is improving from yesterday Doppler of the lower extremities negative Continue Decadron 6 mg by mouth daily for a total of 10 days Gaye Ge Discharge the patient home to be followed up by her primary care physician and [facility]. also recommended and outpatient monitoring with pulse oximeter. Cardiac regular and there is any drop in her pulse ox.
[2020-11-28 16:04] VITALS: BP 106/64; RESP 14
--- NOTE | 2020-11-28 23:52 | P.DS ---
Providers Date of admission: 11/24/20 17:50 Expected date of discharge: 11/28/20 Attending physician: Eunice Martinez Consults: 11/24/20 17:51 Consult Physician Routine Consulting Provider: Eleno Marquez Consult Reason/Comments: COVID PNA Do you want consulting provider notified?: Yes Consult Physician Routine Consulting Provider: Raissa Lopez Consult Reason/Comments: COVID PNA, 28 weks preg Do you want consulting provider notified?: Yes Primary care physician: Physician Nonstaff Hospital Course: Hospital course -Ms. Flowers is a 30-year-old female who is 28 weeks with history of VSD heart murmur coming to the hospital with a chief complaint of shortness of breath and fever and cough. Patient was tested positive for coronavirus on 11/21/2020. As the patient's symptoms progress check came to the hospital for ongoing cough difficulty in breathing and congestion. In the ER patient was tested positive for coronavirus, she had nonstress testing of the fetus B code results. Patient was admitted for further care and management. Patient was started on Decadron and Lovenox Multivitamins and she showed significant improvement in her symptoms. Patient at the time of admission required 2 to 3 L of oxygen and over the course of 2 to 3 days she has been weaned off of oxygen. She was followed by pulmonary service. Patient had a bilateral lower extremity Doppler that was negative for DVT. Eventually patient symptoms improved and her saturations were around 95% on room air. Patient symptoms of cough and difficulty in breathing improved and so she is being discharged home in fair condition. Patient is advised to follow-up with her PCP and [facility] in 2 to 3 days. Vital Signs Last 24 Hours 11/28/20 11/28/20 11/28/20 02:53 06:08 10:26 Temperature 98.5 F 98.2 F 98.0 F Pulse Rate [ 99 102 H 97 Pulse Oximetery ] Respiratory 19 18 13 Rate Blood Pressure 112/73 113/76 108/62 [Left Arm] O2 Sat by Pulse 95 92 L 96 Oximetry 11/28/20 15:09 Temperature 98.0 F Pulse Rate [ 97 Pulse Oximetery ] Respiratory 14 Rate Blood Pressure 106/64 [Left Arm] O2 Sat by Pulse 95 Oximetry PHYSICAL EXAMINATION: GENERAL: The patient is alert and oriented x3, not in any acute distress. Well developed, well nourished. HEENT: Pupils are round and equally reacting to light. EOMI. No scleral icterus. No conjunctival pallor. CARDIOVASCULAR: S1 and S2 present. . PULMONARY: Chest is clear to auscultation, no wheezing or crackles. ABDOMEN: MUSCULOSKELETAL: No joint swelling or deformity. EXTREMITIES: No cyanosis, clubbing, mild pedal edema. NEUROLOGICAL: Gross neurological examination did not reveal any focal deficits. SKIN: No rashes. DISCHARGE DIAGNOSIS Bilateral pneumonia secondary to Covid 28 weeks of gestation Hypovolemic hyponatremia Hypomagnesemia Sinus tachycardia Elevated inflammatory markers Follow up :Patient is advised to complete her steroid course. Robitussin for cough suppression prescribed. She is advised to follow-up with her PCP and [facility] in 2 to 3 days. More than 35 minutes spent with the discharge of the patient. Patient Condition at Discharge: Fair Plan - Discharge Summary Discharge Rx Participant: No New Discharge Prescriptions: New Albuterol Inhaler [Ventolin Hfa Inhaler] 2 puff INHALATION RT-TID #60 puff dexAMETHasone [Hexadrol] 6 mg PO DAILY #6 tab guaiFENesin-DM 100-10MG/5ML [Robitussin DM] 10 ml PO Q6H PRN #100 ml PRN Reason: Cough Continue Zinc 50 mg PO HS Pnv No.95/Ferrous Fum/Folic AC [ Multivitamin Tablet] 1 tab PO DAILY Ascorbic Acid [Vitamin C] 500 mg PO DAILY Discontinued guaiFENesin-DM 100-10MG/5ML [Robitussin DM] 10 ml PO Q4H PRN PRN Reason: Cough Discharge Medication List Ascorbic Acid [Vitamin C] 500 mg PO DAILY 11/24/20 [History] Pnv No.95/Ferrous Fum/Folic AC [ Multivitamin Tablet] 1 tab PO DAILY 11/24/20 [History] Zinc 50 mg PO HS 11/24/20 [History] Albuterol Inhaler [Ventolin Hfa Inhaler] 2 puff INHALATION RT-TID #60 puff 11/28/20 [Rx] dexAMETHasone [Hexadrol] 6 mg PO DAILY #6 tab 11/28/20 [Rx] guaiFENesin-DM 100-10MG/5ML [Robitussin DM] 10 ml PO Q6H PRN #100 ml 11/28/20 [Rx] Follow up Appointment(s)/Referral(s): Martinez Villarreal MD [REFERRING] - 1 Week Adin Arce DO [Doctor of Osteopathic Medicine] - 2 Weeks Patient Instructions/Handouts: Coronavirus Disease 2019 (COVID-19) Discharge Disposition: HOME SELF-CARE
== END 2020-11-28 17:04 | disposition home or self-care (01) | DRG 831 ==
LOC: EC 15:10 → 3SCARD 17:50 → 4SSUR 11-26 21:42
PROVIDERS: ADMIT Hospitalist; ATTEND Hospitalist
DX: O98.513 Other viral diseases complicating pregnancy, third trimester (principal); U07.1 COVID-19; J12.82 Pneumonia due to coronavirus disease 2019; J96.01 Acute respiratory failure with hypoxia; E87.1 Hypo-osmolality and hyponatremia; Q21.0 Ventricular septal defect; E86.0 Dehydration; E86.1 Hypovolemia; O99.513 Diseases of the respiratory system complicating pregnancy, third trimester; R00.0 Tachycardia, unspecified; O99.283 Endocrine, nutritional and metabolic diseases complicating pregnancy, third trimester; E83.42 Hypomagnesemia; Z71.3 Dietary counseling and surveillance; Z3A.28 28 weeks gestation of pregnancy; Z79.899 Other long term (current) drug therapy; Z88.0 Allergy status to penicillin; Z82.49 Family history of ischemic heart disease and other diseases of the circulatory system
CPT/HCPCS: 36415; 71045; 80048; 80053; 81003; 82728; 83605; 83615; 83735; 84145; 85025; 85379; 85610; 85730; 86140; 93005; 93970; 94640; 99285

== ENCOUNTER 2021-02-18 06:00 | Inpatient (IN) | payer OTHER ==
[2021-02-18] MEDS ORDERED: TERBUTALINE 1 MG/ML VIAL SQ PRN (06:43)
[2021-02-18] MEDS ORDERED: LIDOCAINE 0.5% (PF) 5 MG/ML (50 ML SDV) SQ PRN (06:43)
[2021-02-18] MEDS ORDERED: CARBOPROST TROMETHAMINE 250 MCG/ML 1 ML AMP IM PRN (06:43)
[2021-02-18] MEDS ORDERED: METHYLERGONOVINE 0.2 MG/ML 1 ML AMP IM PRN (06:43)
[2021-02-18] MEDS ORDERED: OXYTOCIN 10 UNIT/ML 1 ML VIAL IM PRN (06:43)
[2021-02-18] MEDS ORDERED: OXYTOCIN 30 UNITS/500 ML NS 30 UNIT in SALINE 1 500ML.BAG IV SCH ×2 (06:45→13:00)
[2021-02-18] MEDS: LACTATED RINGERS 1,000 ML IV SCH ×2 (06:51→11:09)
[2021-02-18 07:06] LABS: Basophils # (A) 0.1 k/uL (0-0.2); Basophils % (A) 1 %; Eosinophils # (A) 0.1 k/uL (0-0.7); Eosinophils % (A) 1 %; HCT 41.3 % (34.0-46.0); HGB 14.4 gm/dL (11.4-16.0); Lymphocytes # (A) 1.8 k/uL (1.0-4.8); Lymphocytes % (A) 15 %; MCH 33.9 pg (25.0-35.0); MCHC 34.8 g/dL (31.0-37.0); MCV 97.5 fL (80.0-100.0); Mean Platelet Volume 8.5; Monocytes # (A) 0.5 k/uL (0-1.0); Monocytes % (A) 4 %; Neutrophils % (A) 78 %; Platelet Count 151 k/uL (150-450); RBC 4.23 m/uL (3.80-5.40); RDW 13.1 % (11.5-15.5); WBC 11.6 k/uL (3.8-10.6)
--- NOTE | 2021-02-18 10:40 | P.HPOB ---
History of Present Illness H&P Date: 02/18/21 Chief Complaint: IUP @ 39 4/7 weeks This is a 30-year-old at 39-4/7 weeks with an estimated due date of 02/21. Patient has been receiving routine care which has been essentially uncomplicated. Patient does have a history of a VSD as a child. Patient in addition was diagnosed with COVID-19 during this and hospitalized. Follow-up care has been negative. Patient is currently feeling well. On bloodwork this patient has a blood type of O+, rubella status immune, B surface antigen negative, HIV negative, RPR nonreactive, group beta strep cultures are negative. Patient is noting good movement denies vaginal bleeding or loss of fluid. She states she has had irregular contractions throughout the weekend but nothing consistent. 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 Past Anesthesia/Blood Transfusion Reactions: No Reported Reaction Past Psychological History: Depression Additional Psychological History / Comment(s): pt has been on zoloft for 4 weeks. Smoking Status: Never smoker Past Alcohol Use History: None Reported Past Drug Use History: None Reported - Past Family History Mother Family Medical History: Hypertension Medications and Allergies Home Medications Medication Instructions Recorded Confirmed Type Pnv No.95/Ferrous Fum/Folic AC 1 tab PO DAILY 11/24/20 02/18/21 History [ Multivitamin Tablet] Albuterol Inhaler [Ventolin Hfa 2 puff INHALATION RT-TID #60 puff 11/28/20 02/18/21 Rx Inhaler] Sertraline [Zoloft] 50 mg PO DAILY 02/18/21 02/18/21 History Allergies Allergy/AdvReac Type Severity Reaction Status Date / Time amoxicillin Allergy Rash/Hives Verified 02/18/21 06:16 clavulanic acid Allergy Rash/Hives Verified 02/18/21 06:16 [From Augmentin] Penicillins Allergy Rash/Hives Verified 02/18/21 06:16 Exam Osteopathic Statement: *. No significant issues noted on an osteopathic structural exam other than those noted in the History and Physical/Consult. Vital Signs Temp Pulse Resp BP Pulse Ox 02/18/21 06:16 96.9 F L 89 18 133/75 99 Intake and Output 02/17/21 02/18/21 02/18/21 22:59 06:59 14:59 Other: Weight 73.028 kg Targeted physical exam is performed in this date and signs cleaner a well-nourished well-developed female, breathing is noted to nonlabored, heart has a regular rate and rhythm, abdomen is gravid and appropriate for gestational age on cervical exam she is 3/70/-2 station amniotomy is performed and clear fluid was obtained. Her sex presentation is confirmed by the ultrasound. heart tones are noted to be category 1 and she is rosaura every 4 minutes. Results Result Diagrams: 02/18/21 06:15 Abnormal Lab Results - Last 24 Hours (Table) 02/18/21 Range/Units 06:15 WBC 11.6 H (3.8-10.6) k/uL Neutrophils # 9.0 H (1.3-7.7) k/uL Assessment and Plan (1) Hx of delivery by vacuum extraction, currently Current Visit: Yes Status: Acute Code(s): O09.299 - SUPRVSN OF PREG W POOR REPRODCTV OR OBSTET HISTORY, UNSP TRI SNOMED Code(s): 641966876 (2) Term Current Visit: No Status: Acute Code(s): Z34.80 - ENCOUNTER FOR SUPRVSN OF NORMAL , UNSP TRIMESTER SNOMED Code(s): 11589098 Plan: This is a 30-year-old at 39-4/7 weeks that presents to labor and delivery for elective induction of labor. Patient is admitted to labor and delivery and Pitocin induction of labor is begun per hospital protocol. Options for analgesia are discussed including epidural and Stadol. Patient will consider. Anticipate spontaneous vaginal delivery later today.
[2021-02-18] MEDS ORDERED: fentaNYL (PF) 50 MCG/ML 5 ML AMP ONE (11:09)
[2021-02-18] MEDS ORDERED: ROPIVACAINE 5MG/ML 20ML VIAL ONE (11:09)
[2021-02-18] MEDS ORDERED: SODIUM CHLORIDE 0.9% 100 ML BAG ONE (11:09)
[2021-02-18] MEDS ORDERED: BENZOCAINE/MENTHOL SPRAY 1 GM/SPRAY AEROSOL TOPICAL PRN (12:55)
[2021-02-18] MEDS ORDERED: HYDROCORTISONE 2.5% RECTAL CREAM 30 GM TUBE RECTAL PRN (12:55)
[2021-02-18] MEDS ORDERED: SIMETHICONE 80 MG CHEWABLE PO PRN (12:55)
[2021-02-18] MEDS ORDERED: diphenhydrAMINE 50 MG CAP PO PRN (12:55)
[2021-02-18] MEDS ORDERED: LANOLIN CREAM 5 GM TUBE TOPICAL PRN (12:55)
[2021-02-18] MEDS ORDERED: diphenhydrAMINE 50 MG/ML 1 ML VIAL IVP PRN ×2 (12:55)
[2021-02-18] MEDS ORDERED: diphenhydrAMINE 25 MG CAP PO PRN (12:55)
[2021-02-18] MEDS ORDERED: ZOLPIDEM 5 MG TAB PO PRN (12:55)
--- NOTE | 2021-02-18 12:58 | P.PROBDLV ---
Vaginal Delivery Note - . Vaginal Delivery Note: This is a 30-year-old at 39-4/7 weeks that presented to labor and delivery for elective induction of labor this morning. Patient was admitted and Pitocin induction of labor was begun per protocol. Patient underwent amniotomy clear fluid was obtained. Patient progressed in labor eventually becoming uncomfortable and did request epidural placement. Epidural was placed without difficulty by the anesthesia department. Patient did note some relief from the epidural but was noted to be completely dilated soon afterwards. Patient was placed in the modified lithotomy position with good maternal effort she had a normal spontaneous vaginal delivery of a viable female at 1234, weight of 7 pounds 0.3 ounces, Apgars of 9 and 9 at one and 5 minutes respectively. After two-minute delayed the umbilical cord was doubly clamped and cut and was handed to the maternal abdomen. Spontaneous cry was noted at . The placenta was then delivered spontaneously intact with a three-vessel cord being noted. On inspection the patient's vaginal vault a second-degree midline laceration was noted this was repaired in the usual fashion with 3-0 Rapide. Hemostasis was appreciated. Uterus sounded to be firm and below the umbilicus. Estimated blood loss 300 mL. Patient and infant tolerated delivery well and are resting comfortably. All counts were noted to be correct 2 at the end of the procedure.
[2021-02-18] MEDS: IBUPROFEN 600 MG TAB PO SCH ×2 (14:06→20:49)
[2021-02-18] MEDS: SENNOSIDES-DOCUSATE SODIUM 1 EACH TAB PO SCH (20:49)
[2021-02-19] MEDS: IBUPROFEN 600 MG TAB PO SCH ×3 (02:42→19:35)
[2021-02-19] MEDS: ACETAMINOPHEN TAB 325 MG TAB PO PRN ×2 (08:12→16:29)
[2021-02-19] MEDS: SENNOSIDES-DOCUSATE SODIUM 1 EACH TAB PO SCH ×2 (08:14→19:35)
--- NOTE | 2021-02-19 08:28 | P.DS ---
Providers Date of admission: 02/18/21 06:06 Expected date of discharge: 02/19/21 Attending physician: Raissa Lopez Primary care physician: Stated None - Discharge Diagnosis(es) (1) Hx of delivery by vacuum extraction, currently Current Visit: Yes Status: Acute (2) Term Current Visit: No Status: Acute (3) Status post vaginal delivery Current Visit: Yes Status: Acute (4) Obstetric vaginal laceration with second degree perineal laceration Current Visit: Yes Status: Acute Hospital Course: This is a 30-year-old G2 now P2 that presented to labor and delivery at 39-4/7 weeks for induction of labor. Patient was receiving routine care is been essentially uncomplicated. Patient did have carotid 19 and was admitted during this . For full details on this patient see dictated history and physical. Patient was admitted and Pitocin induction of labor was begun. Patient underwent amniotomy clear fluid was obtained. Patient did receive epidural analgesia during labor. Patient progressed to complete began pushing and had a normal spontaneous vaginal delivery of a viable female at 1234, weight of 7 pounds 0.3 ounces patient did sustain a second-degree vaginal laceration which was repaired in the usual fashion. Patient's course has been uneventful. She is voiding on this day #1. She is tolerating a regular diet without nausea or vomiting. She is breast-feeding. She states her pain is well-controlled. She would like discharge home at 24 hours. Patient Condition at Discharge: Good Plan - Discharge Summary New Discharge Prescriptions: No Action Pnv No.95/Ferrous Fum/Folic AC [ Multivitamin Tablet] 1 tab PO DAILY Albuterol Inhaler [Ventolin Hfa Inhaler] 2 puff INHALATION RT-TID #60 puff Sertraline [Zoloft] 50 mg PO DAILY Discharge Medication List Pnv No.95/Ferrous Fum/Folic AC [ Multivitamin Tablet] 1 tab PO DAILY 11/24/20 [History] Albuterol Inhaler [Ventolin Hfa Inhaler] 2 puff INHALATION RT-TID #60 puff 11/28/20 [Rx] Sertraline [Zoloft] 50 mg PO DAILY 02/18/21 [History] Patient Instructions/Handouts: Vaginal Delivery (GEN), Vaginal Delivery (DC) Discharge Disposition: HOME SELF-CARE
[2021-02-19 16:32] VITALS: BP 133/77; PULSE 86; RESP 18; TEMP 98.6
== END 2021-02-19 20:10 | disposition home or self-care (01) | DRG 806 ==
LOC: 4FBP 06:06
PROVIDERS: ADMIT Obstetrics & Gynecology Obstetrics; ATTEND Obstetrics & Gynecology Obstetrics
PROC: 10E0XZZ Delivery of Products of Conception, External Approach (ICD-10-PCS; principal; 2021-02-18)
PROC: 0KQM0ZZ Repair Perineum Muscle, Open Approach (ICD-10-PCS; 2021-02-18)
DX: O70.1 Second degree perineal laceration during delivery (principal); O98.52 Other viral diseases complicating childbirth; Z37.0 Single live birth; Z86.16 Personal history of COVID-19; F32.9 Major depressive disorder, single episode, unspecified; O99.344 Other mental disorders complicating childbirth; Z3A.39 39 weeks gestation of pregnancy; Z79.899 Other long term (current) drug therapy; Z82.49 Family history of ischemic heart disease and other diseases of the circulatory system
CPT/HCPCS: 85025; 86850; 86900; 86901; 88307

== ENCOUNTER 2024-09-03 13:09 | Emergency (ER) | payer OTHER ==
--- NOTE | 2024-09-03 14:15 | XR ---
EXAMINATION TYPE: XR chest 2V DATE OF EXAM: 09/03/2024 1:46 PM COMPARISON: Chest radiographs from11/26/2020 CLINICAL INDICATION: Female, 34 years old with history of Shortness of breath; [facility] TECHNIQUE: XR chest 2V Frontal and lateral views of the chest. FINDINGS: Lungs/Pleura: Airspace opacities projecting over the right lower lobe. There is no evidence of pleura l effusion, focal consolidation, or pneumothorax. Pulmonary vascularity: Unremarkable. Heart/mediastinum: Cardiomediastinal silhouette is unremarkable. Musculoskeletal: No acute osseous pathology. IMPRESSION: Right lower lobe pneumonia [facility] Hubert Krause, , 09/03/2024 2:12 PM
--- NOTE | 2024-09-03 15:07 | ED ---
URI HPI - General Chief Complaint: Upper Respiratory Infection Stated Complaint: fever, sob Time Seen by Provider: 09/03/24 13:21 Source: patient, RN notes reviewed Mode of arrival: ambulatory Limitations: no limitations - History of Present Illness Initial Comments: This is a 34-year-old female presenting with cough x 2 weeks. Endorses associated fever and difficulty breathing. Endorses son was recently diagnosed with pneumonia. Denies chills, chest pain, abdominal pain, N/V/D, hemoptysis. MD Complaint: fever, cough Onset/Timin -: week(s) Context: sick contacts Associated Symptoms: shortness of breath - Related Data Home Medications Medication Instructions Recorded Confirmed Pnv No.[id number]/Ferrous Fum/Folic AC 1 tab PO DAILY 11/24/20 02/18/21 [ Multivitamin Tablet] Sertraline [Zoloft] 50 mg PO DAILY 02/18/21 02/18/21 Previous Rx's Medication Instructions Recorded Albuterol Inhaler [Ventolin Hfa 2 puff INHALATION RT-TID #60 puff 11/28/20 Inhaler] Azithromycin [Zithromax Z Pack] 0 tab PO DIRECTED #6 tab 09/03/24 Allergies Allergy/AdvReac Type Severity Reaction Status Date / Time amoxicillin Allergy Rash/Hives Verified 09/03/24 13:15 clavulanic acid Allergy Rash/Hives Verified 09/03/24 13:15 [From Augmentin] Penicillins Allergy Rash/Hives Verified 09/03/24 13:15 Review of Systems ROS Statement: Those systems with pertinent positive or pertinent negative responses have been documented in the HPI. ROS Other: All systems not noted in ROS Statement are negative. 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 Past Anesthesia/Blood Transfusion Reactions: No Reported Reaction Past Psychological History: Depression Smoking Status: Never smoker Past Alcohol Use History: Occasional Past Drug Use History: None Reported - Past Family History Mother Family Medical History: Hypertension General Exam Limitations: no limitations General appearance: alert, in no apparent distress Head exam: Present: atraumatic, normocephalic, normal inspection Eye exam: Present: normal appearance, PERRL, EOMI. Absent: scleral icterus, conjunctival injection, periorbital swelling ENT exam: Present: normal exam, mucous membranes moist Neck exam: Present: normal inspection. Absent: tenderness, meningismus, lymphadenopathy Respiratory exam: Present: rhonchi (RLL bronchial breath sounds auscultated). Absent: respiratory distress, wheezes, rales, stridor Cardiovascular Exam: Present: regular rate, normal rhythm, normal heart sounds. Absent: systolic murmur, diastolic murmur, rubs, gallop, clicks GI/Abdominal exam: Present: soft, normal bowel sounds. Absent: distended, tenderness, guarding, rebound, rigid Extremities exam: Present: normal inspection, full ROM, normal capillary refill. Absent: tenderness, pedal edema, joint swelling, calf tenderness Back exam: Present: normal inspection Neurological exam: Present: alert, oriented X3, CN II-XII intact Psychiatric exam: Present: normal affect, normal mood Skin exam: Present: warm, dry, intact, normal color. Absent: rash Course Vital Signs 09/03/24 13:13 Temperature 99.4 F Pulse Rate 126 H Respiratory 18 Rate Blood Pressure 128/79 O2 Sat by Pulse 99 Oximetry Medical Decision Making - Medical Decision Making Was pt. sent in by a medical professional or institution (, PA, PAPER CUTTING MACHINE OPERATOR, urgent care, hospital, or shelter...) When possible be specific @ -[No] Did you speak to anyone other than the patient for history (EMS, parent, family, police, friend...)? What history was obtained from this source @ -[No] Did you review nursing and triage notes (agree or disagree)? Why? @ -[I reviewed and agree with nursing and triage notes] Were old charts reviewed (outside hosp., previous admission, EMS record, old EK G, old radiological studies, urgent care reports/EKG's, shelter records)? Report findings @ -[No old charts were reviewed] Differential Diagnosis (chest pain, altered mental status, abdominal pain women, abdominal pain men, vaginal bleeding, weakness, fever, dyspnea, syncope, headache, dizziness, GI bleed, back pain, seizure, CVA, palpatations, mental health, musculoskeletal)? @ -Differential Fever: Pneumonia, viral URI, endocarditis, myocarditis, pericarditis, otitis, sinusitis, peritonsillar Abscess, retropharyngeal Abscess, epiglottitis, peritonitis, appendicitis, Carmela cystitis, diverticulitis, hepatitis, colitis, UTI, PID, TOA, pyelonephritis, prostatitis, epididymitis, meningitis, encephalitis, pulmonary embolism, CVA, thyroid storm, pancreatitis, adrenal crisis, cavernous sinus thrombosis, this is not meant to be an all-inclusive list. EKG interpreted by me (3pts min.). @ -Not done X-rays interpreted by me (1pt min.). @ -[None done] CT interpreted by me (1pt min.). @ -[None done] U/S interpreted by me (1pt. min.). @ -[None done] What testing was considered but not performed or refused? (CT, X-rays, U/S, labs)? Why? @ -[None] What meds were considered but not given or refused? Why? @ -[None] Did you discuss the management of the patient with other professionals (professionals i.e. , PA, PAPER CUTTING MACHINE OPERATOR, lab, RT, psych nurse, social service assistant, real estate investor, teacher, collection officer, case therapist)? Give summary @ -[No] Was smoking cessation discussed for >3mins.? @ -[No] Was critical care preformed (if so, how long)? @ -[No] Were there social determinants of health that impacted care today? How? (Homelessness, low income, unemployed, alcoholism, drug addiction, transportation, low edu. Level, literacy, decrease access to med. care, residential, rehab)? @ -[No] Was there de-escalation of care discussed even if they declined (Discuss DNR or withdrawal of care, Hospice)? DNR status @ -[No] What co-morbidities impacted this encounter? (DM, HTN, Smoking, COPD, CAD, Cancer, CVA, ARF, Chemo, Hep., AIDS, mental health diagnosis, sleep apnea, morbid obesity)? @ -[None] Was patient admitted / discharged? Hospital course, mention meds given and route, prescriptions, significant lab abnormalities, going to OR and other pertinent info. @ -[hospital course] Undiagnosed new problem with uncertain prognosis? @ -[No] Drug Therapy requiring intensive monitoring for toxicity (Heparin, Nitro, Insulin, Cardizem)? @ -[No] Were any procedures done? @ -[No] Diagnosis/symptom? @ -Pneumonia Acute, or Chronic, or Acute on Chronic? @ -Acute Uncomplicated (without systemic symptoms) or Complicated (systemic symptoms)? @ -Complicated Side effects of treatment? @ -[No] Exacerbation, Progression, or Severe Exacerbation? @ -[No] Poses a threat to life or bodily function? How? (Chest pain, [place], [place], pneumonia, PE, COPD, DKA, ARF, appy, cholecystitis, CVA, Diverticulitis, Homicidal, Suicidal, threat to staff... and all critical care pts) @ -[No] - Lab Data Lab Results 09/03/24 09/03/24 Range/Units 13:19 13:24 Urine HCG, Qual Not Detected (Not Detectd) Influenza Type A (PCR) Not Detected (Not Detectd) Influenza Type B (PCR) Not Detected (Not Detectd) RSV (PCR) Not Detected (Not Detectd) SARS-CoV-2 (PCR) Not Detected (Not Detectd) Disposition Clinical Impression: Pneumonia Disposition: HOME SELF-CARE Condition: Good Instructions (If sedation given, give patient instructions): Community Acquired Pneumonia (ED) Prescriptions: Azithromycin [Zithromax Z Pack] 0 tab PO DIRECTED #6 tab Is patient prescribed a controlled substance at d/c from ED?: No Referrals: Rodriguez Gloria MD [Primary Care Provider] - 1-2 days Time of Disposition: 15:08
[2024-09-03 15:33] VITALS: BP 126/79; PULSE 87; RESP 20; TEMP 98.4
== END 2024-09-03 15:33 | disposition home or self-care (01) ==
LOC: EC 13:09
DX: J18.9 Pneumonia, unspecified organism (principal); Z88.0 Allergy status to penicillin; Z88.1 Allergy status to other antibiotic agents
CPT/HCPCS: 71046; 81025; 87636; 99285